=== PATIENT | female | born 1970 | race Caucasian/White ===

== ENCOUNTER 2020-08-14 00:58 | Outpatient (CLI) | payer BC, SELFPAY ==
--- NOTE | 2020-08-14 08:45 | DI.MAMMO_ITS ---
EXAM: MG MAMMO SCREENING CLINICAL HISTORY: screening, Z12.39 TECHNIQUE: Bilateral full field digital CC and MLO mammographic images were obtained with 3D tomosyn thesis and utilizing computer aided detection (CAD). COMPARISON: There are no priors for comparison at this time. Should they become available, an adden dum will be issued. FINDINGS: Masses/Architectural Distortion: None seen. Left breast biopsy clips are noted. Microcalcifications: No suspicious pleomorphic-type are seen. Skin Thickening/Nipple Retraction: None. IMPRESSION: 1. No significant interval change with no specific features of malignancy noted. 2. Unless there is more urgent need, screening mammography is recommended, as per [place] [employer] guidelines. BI-RADS Category 1 - Negative Breast Density - Category C - Heterogeneously dense The mammogram demonstrates the patient's breast tissue is dense. Dense breast tissue is very common a nd is not abnormal but dense breast tissue can make it harder to find cancer on a mammogram. Also, de nse breast tissue may increase their breast cancer risk. This information about the result of the [facility] mogram report was provided to the patient to raise their awareness. Use this report when you speak wi th the patient about their risks for breast cancer, which includes their family history. At that time , you may recommend for more screening tests (Ultrasound or MRI) as they might be useful based on the ir risk. A negative radiographic report should not delay biopsy if a dominant or clinically suspicious mass is present. Up to ten percent of cancers are not identified on mammography. A negative report may reinforce clinical impression. Adenosis and dense breasts may obscure an underlying neoplasm. False positive reports average 6 to 10%. Patient will receive a letter notifying them of these results.
== END 2020-08-14 01:18 ==
PROVIDERS: PCP Nurse Practitioner Family; Visit Provider Nurse Practitioner Family
DX: Z12.31 Encounter for screening mammogram for malignant neoplasm of breast (principal)
CPT/HCPCS: 77063; 77067

== ENCOUNTER 2020-08-16 02:01 | Outpatient (CLI) | payer BC, SELFPAY ==
[2020-08-16 07:37] LABS: HCT 42.6 % (36.0-46.0); HGB 14.1 g/dL (11.2-15.7); MCH 28.1 pg (27.0-33.0); MCHC 33.1 % (32.0-36.0); MPV 9.7 fL (8.0-11.0); Platelet Count 285 10^3/uL (130-400); RBC 5.01 10^6/uL (3.93-5.22); RDW 13.2 % (11.7-14.6); RDW-SD 40.6 fL; WBC 5.36 10^3/uL (4.4-10.8)
[2020-08-16 08:42] LABS: Total Iron Binding Capacity 377 ug/dL (250-450)
[2020-08-16 08:56] LABS: Anion Gap 8.2 mmol/L (3-11); BUN 19 mg/dL (7-18); CO2 23.8 mmol/L (21.0-32.0); CREATININE 0.91 mg/dL (0.55-1.02); Calcium 8.9 mg/dL (8.5-10.1); Calculated LDL 197 mg/dL (<100); Chloride 108 mmol/L (98-107); Cholesterol 276 mg/dL (<200); Ferritin 33 ng/mL (8-252); Glucose 102 mg/dL (74-106); HDL Cholesterol 51 mg/dL (40-60); Potassium 4.5 mmol/L (3.5-5.1); Sodium 140 mmol/L (136-145); Triglyceride 143 mg/dL (<150)
[2020-08-16 09:32] LABS: Hemoglobin A1C 5.3 % (<5.7)
== END 2020-08-16 02:21 ==
PROVIDERS: PCP Nurse Practitioner Family; Visit Provider Nurse Practitioner Family
DX: E78.5 Hyperlipidemia, unspecified (principal); D50.9 Iron deficiency anemia, unspecified
CPT/HCPCS: 36415; 80048; 80061; 85027; 82728; 83036; 83550

== ENCOUNTER 2020-10-22 09:30 | Outpatient (CLI) | payer BC, SELFPAY ==
[2020-10-22 20:33] LABS: COVID-19 RT-PCR UVMMC Result Negative (Negative)
== END 2020-10-22 09:50 ==
PROVIDERS: PCP Nurse Practitioner Family; Visit Provider Nurse Practitioner Family
DX: Z20.828 Contact with and (suspected) exposure to other viral communicable diseases (principal)
CPT/HCPCS: U0003

== ENCOUNTER 2020-12-30 14:16 | Outpatient (REF) | payer BC, SELFPAY ==
[2021-01-01 12:58] LABS: COVID-19 RT-PCR UVMMC Result Negative (Negative)
== END 2020-12-30 14:17 | disposition home or self-care (01) ==
LOC: NCHCN 14:16
PROVIDERS: PCP Nurse Practitioner Family; Visit Provider Nurse Practitioner Family
DX: Z20.822 Contact with and (suspected) exposure to COVID-19 (principal)
CPT/HCPCS: U0003

== ENCOUNTER 2021-09-22 02:25 | Outpatient (CLI) | payer BC, SELFPAY ==
[2021-09-22 08:23] LABS: ALT 28 U/L (14-59); AST 14 U/L (15-37); Albumin 3.7 g/dL (3.4-5.0); Alkaline Phosphatase 95 U/L (46-116); BUN 21 mg/dL (7-18); Bilirubin, Total 0.3 mg/dL (0.2-1.0); CREATININE 0.9 mg/dL (0.55-1.02); Calcium 8.8 mg/dL (8.5-10.1); Calculated LDL 158 mg/dL (<100); Chloride 108 mmol/L (98-107); Cholesterol 233 mg/dL (<200); Glucose 119 mg/dL (74-106); HDL Cholesterol 51 mg/dL (40-60); Potassium 4.3 mmol/L (3.5-5.1); Sodium 143 mmol/L (136-145); Total Protein 7.1 g/dL (6.4-8.2); Triglyceride 123 mg/dL (<150)
== END 2021-09-22 02:26 | disposition home or self-care (01) ==
LOC: LBO 02:26
PROVIDERS: PCP Nurse Practitioner Family; Visit Provider Nurse Practitioner Family
DX: E78.5 Hyperlipidemia, unspecified (principal)
CPT/HCPCS: 36415; 80053; 80061

== ENCOUNTER 2021-11-12 02:05 | Outpatient (CLI) | payer BC, SELFPAY ==
[2021-11-12 16:27] LABS: Abs Immature Grans 0.05 10^3/uL (0.0-0.06); Absolute Basophil Count 0.03 10^3/uL (0.0-0.2); Absolute Eosinophil Count 0.17 10^3/uL (0.0-0.7); Absolute Lymphocyte Count 1.93 10^3/uL (1.2-3.4); Absolute Monocyte Count 0.55 10^3/uL (0.1-0.8); Absolute Neutrophil Count 5.08 10^3/uL (1.2-6.7); Basophils % 0.4; Eosinophils % 2.2; HCT 39.5 % (36.0-46.0); HGB 12.3 g/dL (11.2-15.7); Immature Grans % 0.6; Lymphocytes % 24.7; MCH 25.3 pg (27.0-33.0); MCHC 31.1 % (32.0-36.0); MCV 81.1 fL (80-95); MPV 9.7 fL (8.0-11.0); Neutrophils % 65.1; Nucleated RBC 0 %; Platelet Count 300 10^3/uL (130-400); RBC 4.87 10^6/uL (3.93-5.22); RDW 14.6 % (11.7-14.6); RDW-SD 42.2 fL; WBC 7.81 10^3/uL (4.4-10.8)
[2021-11-12 16:29] LABS: ESR 29 mm/hr (0-20)
[2021-11-12 18:45] LABS: ALT 22 U/L (14-59); AST 11 U/L (15-37); Albumin 3.7 g/dL (3.4-5.0); Alkaline Phosphatase 95 U/L (46-116); Anion Gap 10.2 mmol/L (3-11); BUN 18 mg/dL (7-18); Bilirubin, Total 0.2 mg/dL (0.2-1.0); CO2 21.8 mmol/L (21.0-32.0); CREATININE 0.7 mg/dL (0.55-1.02); Calcium 8.7 mg/dL (8.5-10.1); Chloride 104 mmol/L (98-107); Glucose 100 mg/dL (74-106); Potassium 4.1 mmol/L (3.5-5.1); Sodium 136 mmol/L (136-145); TSH (W/Ref FT4) 4.27 uIU/mL (0.36-3.74); Total Protein 7.3 g/dL (6.4-8.2)
[2021-11-12 19:03] LABS: FREE T4 0.94 ng/dL (0.76-1.46)
[2021-11-13 17:20] LABS: CRP, High Sensitivity 7.87 mg/L (See Note)
[2021-11-14 13:54] LABS: Lyme Ab w Rflx to Lyme Confirm Negative (Negative)
[2021-11-15 00:35] LABS: Anaplasma phagocytophilum Negative (Negative); B. miyamotoi PCR Negative (Negative); Babesia divergens/MO-1 Negative (Negative); Babesia duncani Negative (Negative); Babesia microti Negative (Negative); Ehrlichia chaffeensis Negative (Negative); Ehrlichia ewingii/canis Negative (Negative); Ehrlichia muris eauclairensis Negative (Negative)
== END 2021-11-12 02:06 | disposition home or self-care (01) ==
LOC: LBO 02:05
PROVIDERS: PCP Nurse Practitioner Family; Visit Provider Nurse Practitioner Family
DX: M25.59 Pain in other specified joint (principal)
CPT/HCPCS: 36415; 80053; 85652; 86141; 87798; 83001; 84439; 84443; 85025; 86618

== ENCOUNTER 2021-11-27 03:01 | Outpatient (CLI) | payer BC, SELFPAY ==
[2021-11-27 21:00] LABS: Rheumatoid Factor <8.6 IU/mL (<12.0)
[2021-11-28 14:25] LABS: ANA Interpretation Negative (Negative)
== END 2021-11-27 03:02 | disposition home or self-care (01) ==
LOC: LBO 03:01
PROVIDERS: PCP Nurse Practitioner Family; Visit Provider Nurse Practitioner Family
DX: M25.59 Pain in other specified joint (principal)
CPT/HCPCS: 36415; 86038; 86431

== ENCOUNTER 2022-01-15 02:05 | Outpatient (CLI) | payer BC, SELFPAY ==
--- NOTE | 2022-01-15 08:55 | DI.MAMMO_ITS ---
Exam(s) MAMMO SCREENING EXAM: MAMMO SCREENING CLINICAL HISTORY: screening,Z12.39 TECHNIQUE: Bilateral full field digital CC and MLO mammographic images were obtained with 3D tomosyn thesis and utilizing computer aided detection (CAD). COMPARISON: Available for comparison. FINDINGS: Masses/Architectural Distortion: There is a new ovoid density in the outer central right breast. Thi s area should be further evaluated. There is again seen a biopsy clip in the upper outer quadrant of the left breast. Microcalcifications: No suspicious pleomorphic-type are seen. Skin Thickening/Nipple Retraction: None. IMPRESSION: 1. New ovoid nodular density in the outer central right breast. 2. Follow-up with spot compression view and right breast ultrasound is recommended. BI-RADS Category 0 - Assessment Incomplete: Need additional imaging evaluation Breast Density - Category C - Heterogeneously dense Breast density category C or D implies that the patient has dense breast tissue. Dense breast tissue is very common and is not abnormal but dense breast tissue can make it harder to find cancer on a ma mmogram. Also, dense breast tissue may increase their breast cancer risk. This information about the result of the mammogram report was provided to the patient to raise their awareness. Use this report when you speak with the patient about their risks for breast cancer, which includes their family hist ory. At that time, you may recommend for more screening tests (Ultrasound or MRI) as they might be us eful based on their risk. A negative radiographic report should not delay biopsy if a dominant or clinically suspicious mass is present. Up to ten percent of cancers are not identified on mammography. A negative report may reinforce clinical impression. Adenosis and dense breasts may obscure an underlying neoplasm. False positive reports average 6 to 10%. Patient will receive a letter notifying them of these results.
== END 2022-01-15 02:25 ==
PROVIDERS: PCP Nurse Practitioner Family; Visit Provider Nurse Practitioner Family
DX: Z12.31 Encounter for screening mammogram for malignant neoplasm of breast (principal); R92.8 Other abnormal and inconclusive findings on diagnostic imaging of breast
CPT/HCPCS: 77063; 77067

== ENCOUNTER 2022-01-29 01:01 | Outpatient (CLI) | payer BC, SELFPAY ==
--- NOTE | 2022-01-29 09:00 | DI.MAMMO_ITS ---
Exam(s) MG MAMMO SCREEN CALL BACK UNI US BREAST RT LIMITED EXAM: MG MAMMO SCREEN CALL BACK UNI and U/S breast RT limited CLINICAL HISTORY: F/U ABNL MAMMO, NEW OVOID DENSITY OUTER CENTRAL RT BREAST. TECHNIQUE: Craniocaudal and mediolateral oblique Full Field Digital Mammography views of the right b reast with Computer Aided Diagnosis followed by Tomosynthesis and right breast ultrasound. COMPARISON: Comparison is made with prior examinations. FINDINGS: Mammography/Tomosynthesis: Masses/Architectural Distortion: There is again seen a well-circumscribed nodule in the outer right b reast approximately 6 cm from the nipple. Microcalcifictions: No suspicious pleomorphic-type are seen. Skin Thickening/Nipple Retraction: None. Limited right breast US: Echotexture: Normal appearance of the glandular tissue. Shadowing: No suspicious foci. Cyst: A cluster of simple cysts is seen at the 8 o'clock position of the right breast 5 cm from the n ipple. This would appear to correspond to the mammographic abnormality. Solid lesions: None seen. Ductal dilation: None. IMPRESSION: 1. No evidence of malignancy is noted. 2. Unless there is more urgent need, follow-up screening mammography is recommended, as per [place] [employer] guidelines. 3. The findings were discussed with the patient on the date of the examination. BI-RADS Category 2 - Benign Findings Breast Density - Category C - Heterogeneously dense Breast density Category C or D implies that the patient has dense breast tissue. Dense breast tissue can make it harder to find cancer on a mammogram. Dense breast tissue is also associated with an incr eased risk of breast cancer. This information about the result of the mammogram report was provided to the patient to raise their awareness. Use this report when you speak with the patient about their risks for breast cancer, which includes their family history. At that time, you may recommend additional screening tests (Ultrasoun d or MRI) as these tests may add significant information. A negative radiographic report should not delay biopsy if a dominant or clinically suspicious mass is present. Up to ten percent of cancers are not identified on mammography. A negative report may reinforce clinical impression. Adenosis and dense breasts may obscure an underlying neoplasm. False positive reports average 6 to 10%. Patient will receive a letter notifying them of these results.
== END 2022-01-29 01:21 ==
PROVIDERS: PCP Nurse Practitioner Family; Visit Provider Nurse Practitioner Family
DX: Z12.31 Encounter for screening mammogram for malignant neoplasm of breast (principal); R92.8 Other abnormal and inconclusive findings on diagnostic imaging of breast; N60.11 Diffuse cystic mastopathy of right breast
CPT/HCPCS: 76642; 77063; 77067

== ENCOUNTER → 2022-03-09 02:26 | Outpatient (CLI) | payer BC, SELFPAY ==
--- NOTE | 2022-03-09 | DI.RAD_ITS ---
Exam(s) XR KNEE RT 3V AP,LAT,DESTINI EXAM: XR KNEE RT 3V AP,LAT,DESTINI CLINICAL HISTORY: CHRONIC RT KNEE PAIN, M25.561, G89.29. TECHNIQUE: 2D digital imaging was performed of the right knee. Three views obtained. AP, PA tunnel and lateral views were obtained. COMPARISON: No exams were available for comparison FINDINGS: BONES: No acute fracture is present. No bony destructive lesion is seen. JOINTS: The knee is normally aligned. No joint effusion is seen. There is narrowing of the patellofem oral joint. Periarticular spurring is seen in the lateral femoral tibial and patellofemoral joints. SOFT TISSUE: Normal. IMPRESSION: Moderate degenerative changes of the right knee. DATA REPOSITORY: RADIATION DOSE DELIVERED:
--- NOTE | 2022-03-09 | DI.RAD_ITS ---
Exam(s) XR KNEE LT 3V AP,LAT,DESTINI EXAM: XR KNEE LT 3V AP,LAT,DESTINI CLINICAL HISTORY: CHRONIC PAIN LT KNEE, M25.562, G89.29. TECHNIQUE: 2D digital imaging was performed of the left knee. Three images were obtained. AP, PA t unnel and lateral views were obtained. COMPARISON: No previous for comparison. FINDINGS: BONES: No acute fracture is present. No bony destructive lesion is seen. JOINTS: The knee is normally aligned. No joint effusion is seen. There is mild narrowing of the adame lofemoral joint. There is periarticular spurring predominantly in the lateral femoral tibial and pat ellofemoral joints. SOFT TISSUE: Normal. IMPRESSION: [id number] degenerative changes of the left knee. DATA REPOSITORY: RADIATION DOSE DELIVERED:
--- NOTE | 2022-03-09 | DI.RAD_ITS ---
Exam(s) XR ARTHRITIS SERIES EXAM: XR ARTHRITIS SERIES CLINICAL HISTORY: REAGAN HAND PAIN, EVAL FOR ARTHRITIS. TECHNIQUE: 2D digital imaging was performed. Two views were obtained. COMPARISON: No exams were available for comparison FINDINGS: BONES: No acute fracture is present. No bony destructive lesion is seen. JOINTS: No dislocation present. SOFT TISSUE: Normal. IMPRESSION: Unremarkable radiographs of bilat hands DATA REPOSITORY: RADIATION DOSE DELIVERED:
== END ==
PROVIDERS: PCP Nurse Practitioner Family; Visit Provider Internal Medicine Rheumatology
DX: M25.562 Pain in left knee (principal); M25.561 Pain in right knee; M17.0 Bilateral primary osteoarthritis of knee; G89.29 Other chronic pain; M79.641 Pain in right hand; M79.642 Pain in left hand
CPT/HCPCS: 73562; 73120

== ENCOUNTER 2022-03-27 15:39 | Outpatient (REF) | payer BC, SELFPAY ==
[2022-03-29 15:42] LABS: COVID-19 RT-PCR UVMMC Result Negative (Negative)
== END 2022-03-27 15:40 | disposition home or self-care (01) ==
LOC: LBN 15:39
PROVIDERS: PCP Nurse Practitioner Family; Visit Provider Family Medicine
DX: R05.8 Other specified cough (principal); Z20.822 Contact with and (suspected) exposure to COVID-19
CPT/HCPCS: U0003

== ENCOUNTER 2022-04-10 01:27 | Outpatient (CLI) | payer BC, SELFPAY ==
[2022-04-13 09:40] LABS: IgA 70 mg/dL (85-499); IgG 895 mg/dL (610-1,616); IgM 66 mg/dL (35-242)
== END 2022-04-10 01:28 | disposition home or self-care (01) ==
LOC: LBO 01:27
PROVIDERS: PCP Nurse Practitioner Family; Visit Provider Internal Medicine Rheumatology
DX: D80.2 Selective deficiency of immunoglobulin A [IgA] (principal)
CPT/HCPCS: 36415; 82784

== ENCOUNTER 2022-05-19 03:52 | Outpatient (CLI) | payer BC, SELFPAY ==
[2022-05-19 12:25] LABS: ALT 30 U/L (14-59); AST 12 U/L (15-37); Albumin 3.3 g/dL (3.4-5.0); Alkaline Phosphatase 82 U/L (46-116); Anion Gap 10.1 mmol/L (3-11); BUN 15 mg/dL (7-18); Bilirubin, Total 0.3 mg/dL (0.2-1.0); CO2 20.9 mmol/L (21.0-32.0); CREATININE 0.8 mg/dL (0.55-1.02); Calcium 8.4 mg/dL (8.5-10.1); Chloride 107 mmol/L (98-107); Glucose 148 mg/dL (74-106); Potassium 3.7 mmol/L (3.5-5.1); Sodium 138 mmol/L (136-145); Total Protein 7.1 g/dL (6.4-8.2)
== END 2022-05-19 03:53 | disposition home or self-care (01) ==
LOC: LBO 03:52
PROVIDERS: PCP Nurse Practitioner Family; Visit Provider Internal Medicine Rheumatology
DX: Z79.899 Other long term (current) drug therapy (principal)
CPT/HCPCS: 36415; 80053

== ENCOUNTER → 2022-08-28 01:04 | Outpatient (CLI) | payer BC, SELFPAY ==
[2022-08-28 09:27] LABS: Abs Immature Grans 0.04 10^3/uL (0.0-0.06); Absolute Basophil Count 0.03 10^3/uL (0.0-0.2); Absolute Eosinophil Count 0.22 10^3/uL (0.0-0.7); Absolute Lymphocyte Count 1.25 10^3/uL (1.2-3.4); Absolute Monocyte Count 0.43 10^3/uL (0.1-0.8); Absolute Neutrophil Count 3.45 10^3/uL (1.2-6.7); Basophils % 0.6; Eosinophils % 4.1; HCT 38.5 % (36.0-46.0); Immature Grans % 0.7; Lymphocytes % 23.1; MCH 24.8 pg (27.0-33.0); MCHC 31.2 % (32.0-36.0); MCV 80 fL (80-95); MPV 9.5 fL (8.0-11.0); Monocytes % 7.9; Neutrophils % 63.6; Platelet Count 293 10^3/uL (130-400); RBC 4.83 10^6/uL (3.93-5.22); RDW 13.4 % (11.7-14.6); RDW-SD 38.5 fL; WBC 5.42 10^3/uL (4.4-10.8)
[2022-08-28 09:55] LABS: ALT 23 U/L (14-59); AST 15 U/L (15-37); Albumin 3.7 g/dL (3.4-5.0); Alkaline Phosphatase 107 U/L (46-116); Anion Gap 9.7 mmol/L (3-11); BUN 18 mg/dL (7-18); Bilirubin, Total 0.3 mg/dL (0.2-1.0); CO2 23.3 mmol/L (21.0-32.0); Calcium 9.1 mg/dL (8.5-10.1); Chloride 108 mmol/L (98-107); Estimated GFR 68.21 (mL/min/1.73m2); Glucose 117 mg/dL (74-106); Sodium 141 mmol/L (136-145); Total Protein 8.1 g/dL (6.4-8.2)
[2022-08-28] MEDS: Barium Sulfate 2% W/V-Berry Smoothie 450 ML BTL 900 ML PO (11:13)
[2022-08-28] MEDS: Omnipaque 350 MG/ML 500 ML BTL-Imaging package 100 ML IJ (11:14)
--- NOTE | 2022-08-28 11:23 | DI.CT_ITS ---
Exam(s) CT CHEST/ABD/PEL W EXAM: CT CHEST/ABD/PEL W CLINICAL HISTORY: MONOCLONAL GAMMOPATHY,D47.2,SUSPECT POEM,STAGING,?ADENOPATHY,SCLEROTIC BONE. TECHNIQUE: Imaging Protocol: Axial computed tomography images with coronal and sagittal reformatted images were created and reviewed CONTRAST MATERIAL: Intravenous: Omnipaque 350 Contrast volume:100 ml Oral: Yes COMPARISON: No exams were available for comparison FINDINGS: CHEST: LUNGS: There are no infiltrates nor pleural effusions. There are no ominous pulmonary nodules.. MEDIASTINUM: There is no hilar nor mediastinal adenopathy. Visualized thyroid unremarkable.No supracl avicular nor axillary adenopathy. CARDIAC: Heart size is normal. There is no pericardial effusion.Caliber of the thoracic aorta is wit hin normal limits. OSSEOUS: No significant osseous lesions.No fractures evident.. ABDOMEN: There is no ascites. LIVER: Liver is hypodense implying steatosis. There are no discrete focal hepatic lesions identified . GALLBLADDER/BILIARY: The gallbladder surgically absent. CBD is not dilated. PANCREAS: No evidence of pancreatic mass nor dilatation of the pancreatic duct. SPLEEN: Spleen size is upper normal. No intrasplenic lesions. Splenic and portal veins are patent. ADRENALS: There are no significant adrenal masses. KIDNEYS: No calculi nor hydronephrosis. No solid renal masses. No cysts evident. ABDOMINAL AORTA: Abdominal aorta is not enlarged. LYMPH NODES: There is no retroperitoneal nor paraaortic adenopathy. ABDOMINAL WALL: No evidence of significant anterior abdominal wall nor inguinal hernia. GI: There is no evidence of bowel obstruction.No abnormal mesenteric masses evident. No mesenteric a denopathy. PELVIS: LYMPH NODES: There is no intrapelvic nor inguinal adenopathy. GI: No evidence of appendicitis.No significant sigmoid diverticular disease. URINARY BLADDER: No calculi nor masses evident REPRODUCTIVE: Uterus is surgically absent. There are no abnormal adnexal masses. Few small cysts ar e noted in the ovaries. There are no extraovarian adnexal masses. OSSEOUS: No significant osseous lesions. No fractures. There is mild degenerative anterolisthesis of L4 upon L5 due to facet arthropathy. Th ere are no pars defects. IMPRESSION: 1. No significant intrathoracic findings. 2. Gallbladder surgically absent. The biliary tree is not dilated. 3. Hepatic steatosis noted but no discrete focal hepatic lesions. No splenomegaly. 4. No abnormal mesenteric masses, lymphadenopathy, or ascites. 5. The uterus is surgically absent. No abnormal adnexal findings. 6. No fractures nor ominous osseous lesions evident. RADIATION DOSE DELIVERED: 2,884.62mGy.cm Total DLP DATA REPOSITORY: All CT scans at this facility are submitted to the National Radiology Data Registry (NRDR) Dose Index Registry (DIR) with the [employer] (ACR). RADIATION OPTIMIZATION: All CT scans at this facility use at least one of these dose optimization te chniques: automated exposure control; mA and/or kV adjustment per patient size (includes targeted exa ms where dose is matched to clinical indication); or iterative reconstruction.
[2022-08-31 10:18] LABS: IgA 78 mg/dL (85-499); IgG 1014 mg/dL (610-1616); IgM 89 mg/dL (35-242); Kappa Free Light Chain 1.25 mg/dL (0.33-1.94); Lambda Free Light Chain 1.23 mg/dL (0.57-2.63)
[2022-08-31 13:45] LABS: Albumin 56.1 % (55.8-66.1); Albumin g/dL 3.9 g/dL (3.6-5.2); Comment (See Note); Monoclonal Spike 6.5 % (None Seen); Monoclonal Spike g/dL 0.5 g/dL (None Seen)
[2022-08-31 14:54] LABS: Immunotyping, Serum (See Note)
== END ==
PROVIDERS: PCP Nurse Practitioner Family; Visit Provider Internal Medicine Hematology & Oncology
DX: K76.0 Fatty (change of) liver, not elsewhere classified (principal); D47.2 Monoclonal gammopathy
CPT/HCPCS: 74177; 80053; 82784; 71260; 83883; 84165; 85025; 86320

== ENCOUNTER 2023-01-18 02:43 | Outpatient (CLI) | payer BC, SELFPAY ==
[2023-01-18] MEDS: Albuterol HFA 18 GM 200 PUFF INH IH (09:27)
[2023-01-18] MEDS: Inhaler, Assist Device 1 EACH MC (09:28)
--- NOTE | 2023-01-19 10:09 | W.PFT ---
Date of service: 01/18/23 Time of Service: 08:02 Pulmonary Function Test Result Indications: Asthma Interpretation Spirometry: There is no airflow limitation. There is no bronchodilator response. Lung Volumes: There may be some air trapping. Diffusion Capacity: Normal diffusion. Airway Pressure: Normal airways resistance. Impression Normal pulmonary function testing with some possible air trapping. Clinical Correlation therefore is recommended.
== END 2023-01-18 02:44 | disposition home or self-care (01) ==
LOC: RT 02:43
PROVIDERS: PCP Nurse Practitioner Family; Visit Provider Nurse Practitioner Family
DX: J45.909 Unspecified asthma, uncomplicated (principal)
CPT/HCPCS: 94060; 94726; 94729

== ENCOUNTER 2023-01-25 01:57 | Outpatient (CLI) | payer BC, SELFPAY ==
--- NOTE | 2023-01-25 08:30 | DI.MAMMO_ITS ---
Exam(s) MAMMO SCREENING EXAM: MAMMO SCREENING CLINICAL HISTORY: screening.z12.39. TECHNIQUE: Bilateral full field digital CC and MLO mammographic images were obtained with 3D tomosyn thesis and utilizing computer aided detection (CAD). COMPARISON: Prior mammograms were reviewed. Prior right breast ultrasound performed in January 2022 was reviewed. FINDINGS: No new findings in the immediate vicinity of the 2 separate biopsy marker clips in the left breast. No new left breast findings. In the right breast on the MLO view there is a asymmetric density-possible nodule measuring 5 x 3 mil limeters located approximately 5 cm in from the nipple, slightly lateral of center, appearing somewha t different in location and the previously present nodular density on the mammogram 1 year ago. Furt her imaging recommended. There are no malignant-appearing microcalcification groups is region or elsewhere in either breast. There is no significant architectural distortion nor skin thickening-retraction. IMPRESSION: 1. Stable benign-appearing left breast findings. 2. Possible new nodule in the right breast measuring approximately 5 x 3 mm seen on the MLO view. Sp ot compression view and ultrasound recommended. This appears to be in different location than the catia proctor which was further studied last year. BI-RADS Category 0 - Assessment Incomplete: Need additional imaging evaluation Breast Density - Category B - Scattered areas of fibroglandular density Breast density Category C or D implies that the patient has dense breast tissue. Dense breast tissue can make it harder to find cancer on a mammogram. Dense breast tissue is also associated with an incr eased risk of breast cancer. This information about the result of the mammogram report was provided to the patient to raise their awareness. Use this report when you speak with the patient about their risks for breast cancer, which includes their family history. At that time, you may recommend additional screening tests (Ultrasoun d or MRI) as these tests may add significant information. A negative radiographic report should not delay biopsy if a dominant or clinically suspicious mass is present. Up to ten percent of cancers are not identified on mammography. A negative report may reinforce clinical impression. Adenosis and dense breasts may obscure an underlying neoplasm. False positive reports average 6 to 10%. Patient will receive a letter notifying them of these results.
== END 2023-01-25 02:17 ==
LOC: DI 01:57
PROVIDERS: PCP Nurse Practitioner Family; Visit Provider Nurse Practitioner Family
DX: Z12.31 Encounter for screening mammogram for malignant neoplasm of breast (principal); R92.8 Other abnormal and inconclusive findings on diagnostic imaging of breast
CPT/HCPCS: 77063; 77067

== ENCOUNTER 2023-01-27 03:26 | Outpatient (CLI) | payer BC, SELFPAY ==
[2023-01-27 07:29] LABS: Abs Immature Grans 0.04 10^3/uL (0.0-0.06); Absolute Basophil Count 0.03 10^3/uL (0.0-0.2); Absolute Eosinophil Count 0.11 10^3/uL (0.0-0.7); Absolute Neutrophil Count 3.47 10^3/uL (1.2-6.7); Basophils % 0.6; Eosinophils % 2.1; HCT 39.3 % (36.0-46.0); HGB 12.1 g/dL (11.2-15.7); Immature Grans % 0.7; Lymphocytes % 24.3; MCH 24.2 pg (27.0-33.0); MCHC 30.8 % (32.0-36.0); MCV 79 fL (80-95); MPV 9.3 fL (8.0-11.0); Monocytes % 7.5; Neutrophils % 64.8; Platelet Count 251 10^3/uL (130-400); RBC 4.99 10^6/uL (3.93-5.22); RDW-SD 42.6 fL; WBC 5.35 10^3/uL (4.4-10.8)
[2023-01-27 07:51] LABS: ALT 30 U/L (14-59); AST 13 U/L (15-37); Albumin 3.5 g/dL (3.4-5.0); Alkaline Phosphatase 101 U/L (46-116); Anion Gap 12.1 mmol/L (3-11); BUN 15 mg/dL (7-18); Bilirubin, Total 0.3 mg/dL (0.2-1.0); CO2 22.9 mmol/L (21.0-32.0); Calcium 8.9 mg/dL (8.5-10.1); Calculated LDL 142 mg/dL (<100); Chloride 108 mmol/L (98-107); Cholesterol 238 mg/dL (<200); Estimated GFR 67.78 (mL/min/1.73m2); Glucose 120 mg/dL (74-106); HDL Cholesterol 65 mg/dL (40-60); Potassium 4.2 mmol/L (3.5-5.1); Sodium 143 mmol/L (136-145); TSH (W/Ref FT4) 3.98 uIU/mL (0.36-3.74); Total Protein 7.6 g/dL (6.4-8.2); Triglyceride 159 mg/dL (<150)
[2023-01-27 07:55] LABS: Hemoglobin A1C 6.3 % (<5.7)
[2023-01-27 08:24] LABS: FREE T4 1.07 ng/dL (0.76-1.46)
[2023-01-28 09:44] LABS: IgA 79 mg/dL (85-499); IgG 945 mg/dL (610-1616); IgM 90 mg/dL (35-242); Kappa Free Light Chain 1.15 mg/dL (0.33-1.94); Lambda Free Light Chain 0.88 mg/dL (0.57-2.63)
[2023-01-28 10:51] LABS: Ferritin 8 ng/mL (8-252)
[2023-01-28 12:46] LABS: Albumin 57.7 % (55.8-66.1); Albumin g/dL 4.2 g/dL (3.6-5.2); Comment (See Note); Monoclonal Spike 6.6 % (None Seen); Monoclonal Spike g/dL 0.5 g/dL (None Seen); Total Protein 7.2 g/dL (6.3-8.2)
[2023-01-28 13:14] LABS: Lab Add On Test DONE
== END 2023-01-27 03:27 | disposition home or self-care (01) ==
PROVIDERS: PCP Nurse Practitioner Family; Visit Provider Internal Medicine Hematology & Oncology
DX: D47.2 Monoclonal gammopathy (principal)
CPT/HCPCS: 36415; 80053; 80061; 82784; 82728; 83036; 83883; 84165; 84439; 84443; 85025

== ENCOUNTER 2023-02-01 00:17 | Outpatient (CLI) | payer BC, SELFPAY ==
--- NOTE | 2023-02-01 07:15 | DI.NM_ITS ---
APPROVED REPORT Exam: Pharmacologic Patient Location: Out-Patient Room/Bed: Stress Nurse: Clarisse Soriano RN Ordering Provider:EBENEZER DLIL, Contact Number: [phone] BMI: 43.59 Baseline Rhythm: Sinus Rhythm Indications: Chest heaviness, GOLDBERG, family H/O heart disease Medical History Medical History: HTN, HLD, GERD, obesity, prediabetes, asthma, ansiety disorder, ANGIE, vit D deficienc y Cardiac Medications: Losartan, Ezetimibe, albuterol, montelukast, hydroxychloroquine Allergies: Statins, latex, erythromycin base, HMG-COA reductase inhibitors Cardiac Risk Factors: HTN, HLD, diabetes, asthma, obesity Previous Cardiac Procedures: None Pretest Chest Pain Characteristics: None Exercise History: Indeterminate Physical Disabilities: None Lung Sounds: Clear to auscultation, diminshed throughout Heart Sounds: Regular Stress Test Details Test: Pharmacologic stress testing performed using 0.4 mg of regadenoson per 5 mL given IV over 10 s econds. Reason for pharmacologic stress test: other (equipment failure). Nuclear Acquisition: Rest Tc-99m/Stress Tc-99m 1 day Rest Isotope: Tc-99m Sestamibi. Dose: 12.0 Date: 02/01/2023 Injection Time: 0930 Stress Isotope: Tc-99m Sestamibi. Dose: 36.0 Date: 02/01/2023 Injection Time: 1130 HR Resting HR Supine: 68 bpm Max Heart Rate (APMHR): 168.990768 bpm Target HR (85% APMHR): 142.612701 bpm Max HR Achieved: 86 bpm % of APMHR: 51.19 Recovery HR: 77 bpm BP Resting BP Supine: 132/68 mmHg Max BP: 142/72 mmHg Recovery BP: 128/64 mmHg ECG Resting ECG: Sinus Rhythm Ectopy: None Stress ECG: Sinus Rhythm ST Change: No significant ST segment changes noted Arrhythmia: None Recovery ECG: Sinus Rhythm Recovery ST Change: No significant ST segment changes noted Recovery Arrhythmia: None Clinical Stress Symptoms: Mild chest heaviness. Angina Score: Non-Limiting Rate Pressure Product: 39700 Stress ECG Conclusion 1. Resting EKG showed left ventricular hypertrophy 2. Pateint underwent testing using paharmacologic stress with regadenoson 3. Peak heart rate was 51% of predicted for age 4. The electrocardiographic portion of the test was nondiagnostic 5. See MPI report MPI Conclusion Myocardial perfusion is normal without ischemia or evidence of prior infarction EF is 65%, wall motion is normal Radiologist Interpretation Radiologist Interpretation by: Russell Ortiz MD Interpretation Date/Time: 02/01/2023 17:10:13
[2023-02-01] MEDS: Regadenoson 0.4 MG/5 ML SYR IVP (12:01)
== END 2023-02-01 00:37 ==
LOC: DI 00:17
PROVIDERS: PCP Nurse Practitioner Family; Visit Provider Nurse Practitioner Family
DX: R07.89 Other chest pain (principal); Z82.49 Family history of ischemic heart disease and other diseases of the circulatory system
CPT/HCPCS: 78452; 93017; J2785

== ENCOUNTER 2023-02-15 00:52 | Outpatient (CLI) | payer BC, SELFPAY ==
--- NOTE | 2023-02-15 | DI.MAMMO_ITS ---
Exam(s) MG MAMMO SCREEN CALL BACK UNI US BREAST RT LIMITED EXAM: MG MAMMO SCREEN CALL BACK UNI and U/S breast RT limited CLINICAL HISTORY: ? NEW NODULE RT BREAST, R92.8 ABNL MAMMO. TECHNIQUE: Craniocaudal and mediolateral oblique Full Field Digital Mammography views of the right b reast with Computer Aided Diagnosis followed by Tomosynthesis and right breast ultrasound. COMPARISON: Comparison is made with prior examinations. FINDINGS: Mammography/Tomosynthesis: Masses/Architectural Distortion: There is again seen a well-circumscribed 4-5 mm nodule in the inferi or right breast on the MLO view. This nodule has been present on prior examinations and is stable in size. No suspicious nodules are seen no suspicious areas of architectural distortion are present. Microcalcifictions: No suspicious pleomorphic-type are seen. Skin Thickening/Nipple Retraction: None. Limited right breast US: Echotexture: Normal appearance of the glandular tissue. Shadowing: No suspicious foci. Cyst: There is a 0.4 x 0.3 x 0.3 cm simple cyst at the 4 o'clock position of the right breast 4 cm fr om the nipple. This would appear to correspond to the mammographic abnormality. Solid lesions: None seen. Ductal dilation: None. IMPRESSION: 1. No evidence of malignancy is noted. 2. Unless there is more urgent need, follow-up screening mammography is recommended, as per [place] [employer] guidelines. 3. The findings were discussed with the patient on the date of the examination. BI-RADS Category 2 - Benign Findings Breast Density - Category B - Scattered areas of fibroglandular density Breast density Category C or D implies that the patient has dense breast tissue. Dense breast tissue can make it harder to find cancer on a mammogram. Dense breast tissue is also associated with an incr eased risk of breast cancer. This information about the result of the mammogram report was provided to the patient to raise their awareness. Use this report when you speak with the patient about their risks for breast cancer, which includes their family history. At that time, you may recommend additional screening tests (Ultrasoun d or MRI) as these tests may add significant information. A negative radiographic report should not delay biopsy if a dominant or clinically suspicious mass is present. Up to ten percent of cancers are not identified on mammography. A negative report may reinforce clinical impression. Adenosis and dense breasts may obscure an underlying neoplasm. False positive reports average 6 to 10%. Patient will receive a letter notifying them of these results.
== END 2023-02-15 01:12 ==
LOC: DI 00:52
PROVIDERS: PCP Nurse Practitioner Family; Visit Provider Nurse Practitioner Family
DX: R92.8 Other abnormal and inconclusive findings on diagnostic imaging of breast (principal)
CPT/HCPCS: 76642; 77063; 77067

== ENCOUNTER 2023-03-02 01:37 | Outpatient (CLI) | payer BC, SELFPAY ==
--- NOTE | 2023-03-02 07:29 | DI.US_ITS ---
APPROVED REPORT EXAM: Comprehensive 2D, Doppler, and color-flow Echocardiogram Patient Location: Out-Patient Second Shift Supervisor: Raúl Bolanos RDMS, RVT Indications: chest heaviness, GOLDBERG, family history of heart disease Other Information Study Quality: Fair. Technically limited study due to body habitus. Conclusion Normal left ventricular wall thickness and chamber size. Ejection fraction is 55 to 60%. Wall motio n is normal Normal right ventricular size and systolic function Both atria are normal in size There is no structural or hemodynamically significant valvular disease Estimated right ventricular systolic pressure is 18 mmHg Mildly dilated ascending aorta 3.48 cm Wall motion Left Ventricle The left ventricle is normal size. The left ventricular systolic function is normal. The left ventric ular ejection fraction is within the normal range. There is normal left ventricular wall thickness. T here is normal LV segmental wall motion. There is no ventricular septal defect visualized. LVEF is 58 %. Right Ventricle The right ventricle is normal size. Right ventricular systolic function is grossly normal. The RVSP i s 18.1 mmHg. Atria The left atrium size is normal. The right atrium size is normal. The interatrial septum is intact wit h no evidence for an atrial septal defect. Aortic Valve The aortic valve is normal in structure. Number of aortic valve leaflets could not be assessed. There is no aortic valvular stenosis. No aortic regurgitation is present. Mitral Valve The mitral valve is normal in structure. No evidence of mitral valve stenosis. Mild mitral regurgita tion. Tricuspid Valve The tricuspid valve is normal in structure. There is no tricuspid valve stenosis. Trace tricuspid reg urgitation. Pulmonic Valve Pulmonic valve is not well visualized. There is no pulmonic valvular stenosis. There is no pulmonic valvular regurgitation. Great Vessels The aortic root is normal in size. The ascending aorta is mildly dilated. Aortic arch is not well vis ualized. IVC is normal in size and collapses >50% with inspiration. Pericardium There is no pericardial effusion. 2D Dimensions IVSD d PLAX 0.92 cm F: 0.6-1.0 LV Vol A2C d MOD 97.1 mL LVPW d PLAX 0.99 cm F: 0.6 - 1.0 LV Vol A4C d MOD 117.1 mL LVID d PLAX 4.62 cm F: 3.8 - 5.2 LA vol/ BSA A2C s A-L 26.8 mL/m2 LVDs 3.15 cm F: 2.2 - 3.5 LA vol/ BSA A4C s A-L 30.4 mL/m2 Ao Root d 2.67 cm F: 2.7 - 3.3 LA Vol/ BSA Biplane s A-L 28.6 mL/m2 RA Area A4C 15.61 cm2 LA Area A4C s MOD 20.51 cm2 RA Vol/ BSA A4C s A-L 20.8 mL/m2 LA Area A2C s MOD 19.28 cm2 Ao Asc Diam d 3.48 cm F: 2.3 - 3.1 LV EF A4C MOD 57.3 % LV EF Teichholz 59.4 % LV EF A2C MOD 59.1 % LVEF (Westbrook's) 58.02 % F: 54 - 74 LV EF Biplane MOD 58.0 % LV Volume 78.22 mL F: 46 - 106 SV 61.79 mL LV Volume Index 36.72 mL/m2 F: 29 - 61 SV Index 28.98 mL/m2 LV Vol Biplane MOD 106.5 mL FS 31.45 % M-Mode TAPSE 2.90 cm (M/F) >1.7 LV Diastology MV E' medial 0.097 (>0.07 m/s) E/A Ratio 0.9 LV E/e MED 8.30 (<14) MV E Vmax 0.81 (0.4-1.3 m/s) MV E' lateral 0.092 (>0.1 m/s) MV A Vmax 0.90 (0.4-1.3 m/s) LV E/e LAT 8.75 (<14) MV E/A Ratio 0.87 MV E/E' medial 8.34 MV E/E' lateral 8.78 Aortic Valve LVOT Area 3.08 cm2 AoV Area Vmax 2.33 cm2 LVOT Vmax 1.36 m/s AoV Area/ BSA (Vmax) 1.09 cm2/m2 LVOT Mean Logan. 0.81 m/s BREEZY Mean Logan. 2.34 cm2 LVOT Peak Grad 7.4 mmHg BREEZY Mean Logan. Index 1.10 cm2/m2 LVOT Mean Grad 3.3 mmHg LVOT VTI 0.306 m LVOT Diam s 1.95 cm AoV Vmax 1.80 m/s Velocity Ratio 0.76 AoV Mean Logan. 1.07 m/s AoV Peak Grad 13.0 mmHg LVOT SV 94.20 mL AoV Mean Grad 5.5 mmHg AoV VTI 0.324 m AoV Area VTI 2.91 cm2 AoV Area/ BSA (VTI) 1.36 cm/m2 Mitral Valve MV DT 305 (160-240 msec) MV PHT 89 msec MV Area PHT 2.49 cm2 MV VTI 0.315 m MV Area VTI 2.99 (4.0-6.0 cm2) Pulmonary Valve PV Vmax 1.05 (0.5-1.5 m/s) RVOT Peak Gr. 1.48 mmHg PV Peak Grad 4.4 mmHg RVOT Mean Gr. 0.70 mmHg PV Mean Grad 2.4 mmHg RVOT VTI 0.115 m PV VTI 0.235 m RVOT Vmax 0.61 m/s Tricuspid Valve TR Peak Grad 15.1 mmHg TR Vmax 1.94 m/s RA Pressure 3.00 mmHg RVSP (TR) 18.1 mmHg
== END 2023-03-02 01:57 ==
LOC: DI 01:37
PROVIDERS: PCP Nurse Practitioner Family; Visit Provider Nurse Practitioner Family
DX: R07.89 Other chest pain (principal); Z82.49 Family history of ischemic heart disease and other diseases of the circulatory system
CPT/HCPCS: 93306

== ENCOUNTER 2023-05-10 04:25 | Outpatient (CLI) | payer BC, SELFPAY ==
[2023-05-10 13:44] LABS: Abs Immature Grans 0.02 10^3/uL (0.0-0.06); Absolute Basophil Count 0.03 10^3/uL (0.0-0.2); Absolute Lymphocyte Count 1.46 10^3/uL (1.2-3.4); Absolute Monocyte Count 0.53 10^3/uL (0.1-0.8); Absolute Neutrophil Count 5.32 10^3/uL (1.2-6.7); Basophils % 0.4; Eosinophils % 2.6; HCT 43.5 % (36.0-46.0); HGB 13.5 g/dL (11.2-15.7); Immature Grans % 0.3; Lymphocytes % 19.3; MCH 24.9 pg (27.0-33.0); MCV 80 fL (80-95); MPV 9.1 fL (8.0-11.0); Neutrophils % 70.4; Platelet Count 315 10^3/uL (130-400); RBC 5.43 10^6/uL (3.93-5.22); RDW 15.4 % (11.7-14.6); RDW-SD 44.1 fL; WBC 7.56 10^3/uL (4.4-10.8)
[2023-05-10 14:08] LABS: ALT 32 U/L (14-59); AST 16 U/L (15-37); Albumin 3.9 g/dL (3.4-5.0); Alkaline Phosphatase 99 U/L (46-116); Anion Gap 12.4 mmol/L (3-11); BUN 18 mg/dL (7-18); Bilirubin, Total 0.3 mg/dL (0.2-1.0); CO2 20.6 mmol/L (21.0-32.0); Calcium 9.3 mg/dL (8.5-10.1); Chloride 107 mmol/L (98-107); Estimated GFR 67.78 (mL/min/1.73m2); Glucose 103 mg/dL (74-106); Potassium 4.2 mmol/L (3.5-5.1); Sodium 140 mmol/L (136-145)
[2023-05-10 14:22] LABS: TSH (W/Ref FT4) 3.28 uIU/mL (0.36-3.74)
[2023-05-10 14:41] LABS: Hemoglobin A1C 5.3 % (<5.7)
[2023-05-11 09:41] LABS: IgA 77 mg/dL (85-499); IgG 850 mg/dL (610-1616); IgM 79 mg/dL (35-242); Kappa Free Light Chain 1.34 mg/dL (0.33-1.94); Lambda Free Light Chain 1.17 mg/dL (0.57-2.63)
[2023-05-11 14:38] LABS: Albumin 58.2 % (55.8-66.1); Albumin g/dL 4.4 g/dL (3.6-5.2); Alpha 1 g/dL 0.41 g/dL (0.15-0.40); Alpha 2 g/dL 0.89 g/dL (0.50-1.00); Beta g/dL 0.99 g/dL (0.60-1.20); Comment (See Note); Gamma g/dL 0.85 g/dL (0.60-1.60); Monoclonal Spike 5.7 % (None Seen); Monoclonal Spike g/dL 0.4 g/dL (None Seen); Total Protein 7.5 g/dL (6.3-8.2)
== END 2023-05-10 04:26 | disposition home or self-care (01) ==
PROVIDERS: PCP Nurse Practitioner Family; Visit Provider Internal Medicine Hematology & Oncology
DX: R73.03 Prediabetes (principal); R79.89 Other specified abnormal findings of blood chemistry; D47.2 Monoclonal gammopathy
CPT/HCPCS: 36415; 80053; 82784; 83036; 83883; 84165; 84443; 85025

== ENCOUNTER 2023-08-11 03:54 | Outpatient (CLI) | payer BC, SELFPAY ==
[2023-08-11 07:23] LABS: Abs Immature Grans 0.02 10^3/uL (0.0-0.06); Absolute Basophil Count 0.03 10^3/uL (0.0-0.2); Absolute Eosinophil Count 0.11 10^3/uL (0.0-0.7); Absolute Lymphocyte Count 1.21 10^3/uL (1.2-3.4); Absolute Monocyte Count 0.37 10^3/uL (0.1-0.8); Absolute Neutrophil Count 3.55 10^3/uL (1.2-6.7); Basophils % 0.6; Eosinophils % 2.1; HCT 44.5 % (36.0-46.0); Immature Grans % 0.4; Lymphocytes % 22.9; MCH 26.5 pg (27.0-33.0); MCHC 31.5 % (32.0-36.0); MCV 84 fL (80-95); MPV 9.3 fL (8.0-11.0); Platelet Count 270 10^3/uL (130-400); RBC 5.29 10^6/uL (3.93-5.22); RDW 13.8 % (11.7-14.6); RDW-SD 42.3 fL; WBC 5.29 10^3/uL (4.4-10.8)
[2023-08-11 08:01] LABS: ALT 22 U/L (14-59); AST 13 U/L (15-37); Albumin 3.6 g/dL (3.4-5.0); Alkaline Phosphatase 102 U/L (46-116); Anion Gap 8.2 mmol/L (3-11); BUN 15 mg/dL (7-18); Bilirubin, Total 0.3 mg/dL (0.2-1.0); CO2 23.8 mmol/L (21.0-32.0); CREATININE 1.1 mg/dL (0.55-1.02); Calcium 9.4 mg/dL (8.5-10.1); Chloride 106 mmol/L (98-107); Estimated GFR 60.46 (mL/min/1.73m2); Glucose 89 mg/dL (74-106); Potassium 3.7 mmol/L (3.5-5.1); Sodium 138 mmol/L (136-145); Total Protein 7.6 g/dL (6.4-8.2)
[2023-08-12 09:57] LABS: IgA 75 mg/dL (85-499); IgG 819 mg/dL (610-1616); IgM 74 mg/dL (35-242); Kappa Free Light Chain 1.44 mg/dL (0.33-1.94); Lambda Free Light Chain 1.12 mg/dL (0.57-2.63)
[2023-08-12 13:52] LABS: Albumin 60.5 % (55.8-66.1); Albumin g/dL 4.2 g/dL (3.6-5.2); Monoclonal Spike 5.8 % (None Seen); Monoclonal Spike g/dL 0.4 g/dL (None Seen); Total Protein 6.9 g/dL (6.3-8.2)
[2023-08-12 15:37] LABS: Comment (See Note)
== END 2023-08-11 03:55 | disposition home or self-care (01) ==
PROVIDERS: PCP Nurse Practitioner Family; Visit Provider Internal Medicine Hematology & Oncology
DX: D47.2 Monoclonal gammopathy (principal)
CPT/HCPCS: 36415; 80053; 82784; 83883; 84165; 85025

== ENCOUNTER 2023-10-27 04:52 | Outpatient (CLI) | payer BC, SELFPAY ==
[2023-10-27 10:17] LABS: Abs Immature Grans 0.05 10^3/uL (0.0-0.06); Absolute Basophil Count 0.03 10^3/uL (0.0-0.2); Absolute Eosinophil Count 0.09 10^3/uL (0.0-0.7); Absolute Lymphocyte Count 1.67 10^3/uL (1.2-3.4); Absolute Monocyte Count 0.59 10^3/uL (0.1-0.8); Absolute Neutrophil Count 4.31 10^3/uL (1.2-6.7); Basophils % 0.4; Eosinophils % 1.3; HCT 42.3 % (36.0-46.0); HGB 13.2 g/dL (11.2-15.7); Immature Grans % 0.7; Lymphocytes % 24.8; MCH 26.3 pg (27.0-33.0); MCHC 31.2 % (32.0-36.0); MCV 84 fL (80-95); MPV 8.8 fL (8.0-11.0); Monocytes % 8.8; Platelet Count 269 10^3/uL (130-400); RBC 5.01 10^6/uL (3.93-5.22); RDW 13.3 % (11.7-14.6); RDW-SD 40.9 fL; WBC 6.74 10^3/uL (4.4-10.8)
[2023-10-27 10:44] LABS: ALT 35 U/L (14-59); AST 15 U/L (15-37); Albumin 3.2 g/dL (3.4-5.0); Alkaline Phosphatase 80 U/L (46-116); Anion Gap 8.2 mmol/L (3-11); BUN 18 mg/dL (7-18); Bilirubin, Total 0.3 mg/dL (0.2-1.0); CO2 24.8 mmol/L (21.0-32.0); Calcium 9.1 mg/dL (8.5-10.1); Chloride 108 mmol/L (98-107); Estimated GFR 67.78 (mL/min/1.73m2); Glucose 85 mg/dL (74-106); Potassium 3.9 mmol/L (3.5-5.1); Sodium 141 mmol/L (136-145); Total Protein 6.7 g/dL (6.4-8.2)
== END 2023-10-27 04:53 | disposition home or self-care (01) ==
PROVIDERS: PCP Nurse Practitioner Family; Visit Provider Internal Medicine Rheumatology
DX: Z79.899 Other long term (current) drug therapy (principal); M06.09 Rheumatoid arthritis without rheumatoid factor, multiple sites
CPT/HCPCS: 36415; 80053; 85025

== ENCOUNTER 2024-02-02 05:38 | Outpatient (CLI) | payer BC, SELFPAY ==
[2024-02-02 07:21] LABS: Abs Immature Grans 0.02 10^3/uL (0.0-0.06); Absolute Basophil Count 0.02 10^3/uL (0.0-0.2); Absolute Eosinophil Count 0.23 10^3/uL (0.0-0.7); Absolute Lymphocyte Count 1.41 10^3/uL (1.2-3.4); Absolute Monocyte Count 0.45 10^3/uL (0.1-0.8); Absolute Neutrophil Count 2.84 10^3/uL (1.2-6.7); Basophils % 0.4; Eosinophils % 4.6; HCT 44.4 % (36.0-46.0); Immature Grans % 0.4; Lymphocytes % 28.4; MCH 27.5 pg (27.0-33.0); MCHC 31.5 % (32.0-36.0); MCV 87 fL (80-95); MPV 8.9 fL (8.0-11.0); Monocytes % 9.1; Neutrophils % 57.1; Platelet Count 262 10^3/uL (130-400); RBC 5.09 10^6/uL (3.93-5.22); RDW 13.6 % (11.7-14.6); RDW-SD 43.8 fL; WBC 4.97 10^3/uL (4.4-10.8)
[2024-02-02 08:00] LABS: ALT 32 U/L (14-59); AST 17 U/L (15-37); Albumin 3.9 g/dL (3.4-5.0); Alkaline Phosphatase 91 U/L (46-116); Anion Gap 11.3 mmol/L (3-11); BUN 14 mg/dL (7-18); Bilirubin, Total 0.4 mg/dL (0.2-1.0); CO2 25.7 mmol/L (21.0-32.0); Calcium 9.1 mg/dL (8.5-10.1); Chloride 106 mmol/L (98-107); Estimated GFR 67.36 (mL/min/1.73m2); Glucose 89 mg/dL (74-106); Potassium 3.7 mmol/L (3.5-5.1); Sodium 143 mmol/L (136-145); Total Protein 7.6 g/dL (6.4-8.2)
[2024-02-02 08:02] LABS: C-Reactive Protein < 0.50 mg/dL (<or=0.5)
== END 2024-02-02 05:39 | disposition home or self-care (01) ==
PROVIDERS: PCP Nurse Practitioner Family; Visit Provider Internal Medicine Rheumatology
DX: Z79.899 Other long term (current) drug therapy (principal); M06.09 Rheumatoid arthritis without rheumatoid factor, multiple sites
CPT/HCPCS: 36415; 80053; 85025; 86140

== ENCOUNTER 2024-03-15 05:08 | Outpatient (CLI) | payer BC, SELFPAY ==
[2024-03-15 16:43] LABS: Abs Immature Grans 0.02 10^3/uL (0.0-0.06); Absolute Basophil Count 0.03 10^3/uL (0.0-0.2); Absolute Eosinophil Count 0.32 10^3/uL (0.0-0.7); Absolute Lymphocyte Count 1.37 10^3/uL (1.2-3.4); Absolute Monocyte Count 0.69 10^3/uL (0.1-0.8); Absolute Neutrophil Count 2.85 10^3/uL (1.2-6.7); Basophils % 0.6 %; Eosinophils % 6.1 %; HCT 39.7 % (36.0-46.0); HGB 13.1 g/dL (11.2-15.7); Immature Grans % 0.4 %; Lymphocytes % 25.9 %; MCH 28.6 pg (27.0-33.0); MCV 87 fL (80-95); MPV 9.4 fL (8.0-11.0); Monocytes % 13.1 %; Neutrophils % 53.9 %; Platelet Count 272 10^3/uL (130-400); RBC 4.58 10^6/uL (3.93-5.22); RDW 13.2 % (11.7-14.6); WBC 5.28 10^3/uL (4.4-10.8)
[2024-03-15 17:16] LABS: Iron 50 ug/dL (50-170); Total Iron Binding Capacity 431 ug/dL (250-450); Transferrin Sat 12 % (15-50)
[2024-03-15 17:30] LABS: ALT 27 U/L (14-59); AST 9 U/L (15-37); Alkaline Phosphatase 82 U/L (46-116); Anion Gap 11.5 mmol/L (3-11); BUN 17 mg/dL (7-18); Bilirubin, Total 0.3 mg/dL (0.2-1.0); CO2 22.5 mmol/L (21.0-32.0); CREATININE 0.8 mg/dL (0.55-1.02); Calcium 9.2 mg/dL (8.5-10.1); Chloride 107 mmol/L (98-107); Estimated GFR 88.05 (mL/min/1.73m2); Ferritin 15 ng/mL (8-252); Glucose 98 mg/dL (74-106); Potassium 4.2 mmol/L (3.5-5.1); Sodium 141 mmol/L (136-145)
[2024-03-17 11:04] LABS: IgA 52 mg/dL (85-499); IgG 708 mg/dL (610-1616); IgM 50 mg/dL (35-242); Kappa Free Light Chain 0.86 mg/dL (0.33-1.94)
[2024-03-17 14:07] LABS: Albumin 64.2 % (55.8-66.1); Albumin g/dL 4.4 g/dL (3.6-5.2); Comment (See Note); Monoclonal Spike 5.6 % (None Seen); Monoclonal Spike g/dL 0.4 g/dL (None Seen); Total Protein 6.8 g/dL (6.3-8.2)
== END 2024-03-15 05:09 | disposition home or self-care (01) ==
PROVIDERS: PCP Nurse Practitioner Family; Visit Provider Nurse Practitioner Adult Health
DX: D50.8 Other iron deficiency anemias (principal); D47.2 Monoclonal gammopathy
CPT/HCPCS: 36415; 80053; 82784; 82728; 83540; 83550; 83883; 84165; 85025

== ENCOUNTER 2024-04-24 04:16 | Outpatient (CLI) | payer BC, SELFPAY ==
[2024-04-24 16:41] LABS: Abs Immature Grans 0.04 10^3/uL (0.0-0.06); Absolute Basophil Count 0.04 10^3/uL (0.0-0.2); Absolute Eosinophil Count 0.24 10^3/uL (0.0-0.7); Absolute Monocyte Count 0.56 10^3/uL (0.1-0.8); Absolute Neutrophil Count 4.52 10^3/uL (1.2-6.7); Basophils % 0.6 %; Eosinophils % 3.5 %; HCT 41.2 % (36.0-46.0); HGB 13.6 g/dL (11.2-15.7); Immature Grans % 0.6 %; Lymphocytes % 21.7 %; MCH 28.6 pg (27.0-33.0); MCV 87 fL (80-95); MPV 9.2 fL (8.0-11.0); Monocytes % 8.1 %; Neutrophils % 65.5 %; Platelet Count 287 10^3/uL (130-400); RBC 4.76 10^6/uL (3.93-5.22); RDW 12.8 % (11.7-14.6); RDW-SD 39.9 fL
[2024-04-24 17:31] LABS: ALT 29 U/L (14-59); AST 17 U/L (15-37); Albumin 3.8 g/dL (3.4-5.0); Alkaline Phosphatase 86 U/L (46-116); Anion Gap 12.2 mmol/L (3-11); BUN 19 mg/dL (7-18); Bilirubin, Total 0.37 mg/dL (0.2-1.0); C-Reactive Protein 0.51 mg/dL (<or=0.5); CO2 22.8 mmol/L (21.0-32.0); CREATININE 0.9 mg/dL (0.55-1.02); Calcium 9.1 mg/dL (8.5-10.1); Chloride 106 mmol/L (98-107); Estimated GFR 76.44 (mL/min/1.73m2); Glucose 92 mg/dL (74-106); Potassium 3.9 mmol/L (3.5-5.1); Sodium 141 mmol/L (136-145); Total Protein 7.4 g/dL (6.4-8.2)
[2024-04-24 17:51] LABS: Calculated LDL 111 mg/dL (<100); Cholesterol 196 mg/dL (<200); HDL Cholesterol 52 mg/dL (40-60); Triglyceride 165 mg/dL (<150); Vitamin B12 448 pg/mL (193-986); Vitamin D 25 Total 48.9 ng/mL (30-100)
[2024-04-25 20:15] LABS: Hepatitis C Ab w Rflx HCV PCR Negative (Negative)
[2024-04-25 20:22] LABS: HBs Antibody, Quant 12.2 mIU/mL (See Note); Hep B Surface Ab Positive (See Note); Hepatitis B Core Antibody Negative (Negative); Hepatitis B Surface Antigen Negative (Negative)
[2024-04-25 20:28] LABS: HIV-1/2 Ag & Ab Screen Negative (Negative)
== END 2024-04-24 04:17 | disposition home or self-care (01) ==
LOC: LBO 04:17
PROVIDERS: Internal Medicine Rheumatology; PCP Nurse Practitioner Family; Visit Provider Nurse Practitioner Family
DX: Z11.59 Encounter for screening for other viral diseases (principal); Z00.00 Encounter for general adult medical examination without abnormal findings; I10 Essential (primary) hypertension; E78.5 Hyperlipidemia, unspecified; Z11.4 Encounter for screening for human immunodeficiency virus [HIV]; K21.9 Gastro-esophageal reflux disease without esophagitis; E55.9 Vitamin D deficiency, unspecified
CPT/HCPCS: 36415; 80053; 80061; 82306; 86704; 86706; 86803; 87340; 87389; 82607; 85025; 86140

== ENCOUNTER → 2024-04-28 00:28 | Outpatient (CLI) | payer BC, SELFPAY ==
--- NOTE | 2024-04-28 07:45 | DI.MAMMO_ITS ---
Exam(s) MAMMO SCREENING EXAM: MAMMO SCREENING CLINICAL HISTORY: screening, Z12.39. TECHNIQUE: Bilateral full field digital CC and MLO mammographic images were obtained with 3D tomosyn thesis and utilizing computer aided detection (CAD). COMPARISON: Prior mammograms were reviewed. FINDINGS: No new left breast findings. No new findings in the immediate vicinity of the 2 separate biopsy gavi er devices in the left breast. In the right breast on the MLO view there is a small 5 x 3 millimeter nodular density again noted whi ch is unchanged from mammogram January 2023 and has apparently been shown to be a cyst on ultrasound ex amination of 02/15/2023. There are no new spiculated masses nor malignant appearing microcalcification groups. There is no significant architectural distortion nor skin thickening-retraction. IMPRESSION: Stable benign-appearing findings. No radiographic evidence of malignancy. BI-RADS Category 2 - Benign Findings Breast Density - Category B - Scattered areas of fibroglandular density Breast density Category C or D implies that the patient has dense breast tissue. Dense breast tissue can make it harder to find cancer on a mammogram. Dense breast tissue is also associated with an incr eased risk of breast cancer. This information about the result of the mammogram report was provided to the patient to raise their awareness. Use this report when you speak with the patient about their risks for breast cancer, which includes their family history. At that time, you may recommend additional screening tests (Ultrasoun d or MRI) as these tests may add significant information. A negative radiographic report should not delay biopsy if a dominant or clinically suspicious mass is present. Up to ten percent of cancers are not identified on mammography. A negative report may reinforce clinical impression. Adenosis and dense breasts may obscure an underlying neoplasm. False positive reports average 6 to 10%. Patient will receive a letter notifying them of these results.
== END ==
PROVIDERS: PCP Nurse Practitioner Family; Visit Provider Nurse Practitioner Family
DX: Z12.39 Encounter for other screening for malignant neoplasm of breast (principal); Z12.31 Encounter for screening mammogram for malignant neoplasm of breast
CPT/HCPCS: 77063; 77067

== ENCOUNTER 2024-08-17 09:48 | Day surgery (SDC) | payer BC, SELFPAY ==
--- NOTE | 2024-08-17 09:50 | W.ANESPRE ---
General Info Date of Service Date Performed: 08/17/24 Height: 5 ft 4 in Weight: 91.626 kg Body Mass Index (BMI): 34.7 Surgical Procedure: Operation Date: 08/17/24 11:05 Proposed Procedure Side Surgeon p Colonoscopy/Gastroscopy Mateo Anderson MD Meds Allergies and Home Medications Allergies Allergy/AdvReac Type Severity Reaction Status Date / Time latex Allergy Unknown Anaphylaxsi Verified 08/17/24 10:05 s erythromycin base AdvReac Unknown [place]/Vomi Verified 08/17/24 10:05 ting Hljotys-OCK-JpI Reductase AdvReac Unknown Myalgias Verified 08/17/24 10:05 Inhibitor (Jxlshhd-Hhi-Opa Reductase Inhibitor) Home Medication ?Medication ?Instructions ?Recorded diclofenac sodium 75 mg 75 mg PO BID 10/31/21 tablet,delayed release cetirizine 10 mg capsule (Zyrtec) 10 mg PO DAILY PRN 04/09/22 fexofenadine 180 mg tablet 180 mg PO DAILY PRN 05/19/22 (Maddie Allergy) hydroxychloroquine 200 mg tablet 200 mg PO DAILY 01/13/23 ondansetron HCl 8 mg tablet 8 mg PO TID PRN nausea and 08/04/23 vomiting #60 tabs ezetimibe 10 mg tablet (Zetia) 10 mg PO DAILY #90 tab-caps 08/25/23 losartan 100 mg tablet 100 mg PO DAILY #90 tabs 08/25/23 cholecalciferol (vitamin D3) 50 2,000 unit PO BID #180 caps 09/07/23 mcg (2,000 unit) capsule omeprazole 20 mg capsule,delayed 20 mg PO BID #180 tab-caps 10/04/23 release topiramate 100 mg tablet 100 mg PO DAILY #90 tabs 10/04/23 bupropion HCl 150 mg tablet,12 hr 150 mg PO BID #180 tabs 10/28/23 sustained-release fluticasone furoate 200 1 inh inhalation DAILY #3 ea 12/09/23 mcg-vilanterol 25 mcg/dose inhalation powder (Breo Ellipta) montelukast 10 mg tablet 10 mg PO QHS #90 tabs 03/01/24 albuterol sulfate 90 mcg/actuation 2 puff inhalation Q6H PRN 04/21/24 aerosol inhaler shortness of breath or wheezing #8.5 grams magnesium 250 mg tablet 250 mg PO DAILY 04/21/24 sulfasalazine 500 mg 1 g PO BID 04/21/24 tablet,delayed release estradiol 1 mg tablet (Estrace) 1 mg PO DAILY #90 tabs 04/24/24 semaglutide (weight loss) 1.7 1.7 mg (0.75 mL) subcut QWEEK #12 07/18/24 mg/0.75 mL subcutaneous pen SYRGS injector bisacodyl 5 mg tablet,delayed 5 mg PO ONCE #4 tabs 07/27/24 release (Dulcolax (bisacodyl)) polyethylene glycol 3350 17 17 g PO ONCE #238 grams 07/27/24 gram/dose oral powder Current Visit Medications: Current Medications Generic Name Dose Route Start Last Admin Trade Name Freq PRN Reason Stop Dose Admin Ringer's Solution 1,000 mls @ 80 mls/hr 08/17/24 06:00 IV 08/17/24 23:59 INFUSION JOHN IV Miscellaneous Supplies 1 each 08/17/24 06:00 Iv Access IV 08/17/24 23:59 DIRECTED JOHN Sodium Chloride 0 ml 08/17/24 06:00 Normal Saline Flush 10 Ml Syr IV 08/17/24 23:59 PRN PRN Sodium Chloride 0 ml 08/17/24 06:00 Normal Saline 10 Ml Vial IJ 08/17/24 23:59 DIRECTED PRN Sterile Water 0 ml 08/17/24 06:00 Water,Injection,Sterile 10 Ml Vial IJ 08/17/24 23:59 DIRECTED PRN PFSH Active Problems Active Problems: Problem Status Onset Code Vasomotor symptoms due to menopause Acute N95.1 Ascending aorta dilation Chronic I77.810 Iron deficiency Chronic E61.1 Obesity, Class III, BMI 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 obesity) Chronic E66.01 Inflammatory arthritis Chronic M19.90 Major depressive disorder, recurrent Chronic F33.9 Asthma Chronic J45.909 MGUS (monoclonal gammopathy of unknown significance) Chronic D47.2 Right carpal tunnel syndrome Chronic G56.01 Allergic rhinitis Chronic J30.9 Migraine headache Chronic G43.909 GERD (gastroesophageal reflux disease) Chronic K21.9 Generalized anxiety disorder Chronic F41.1 Obstructive sleep apnea Chronic G47.33 Hyperlipidemia Chronic E78.5 Essential hypertension Chronic I10 Medical History Medical History Recurrent sinus infections Iron deficiency anemia Type 2 diabetes mellitus Per pt. no longer has Renal calculus Surgical History Surgical History S/P partial hysterectomy (~2011) Ovaries remain H/O section (07/19/00) Hx of adenoidectomy (~1975) S/P cholecystectomy (~1993) Tobacco Smoking/Tobacco Use Status: Never Passive smoking exposure: No Second hand exposure: Yes Alcohol Alcohol Intake: current Alcohol intake frequency: a few times a month Alcohol type: beer, wine and hard liquor Substance Use Substance use: Never Substance use type: does not use Prental History History 1 Para 1 Hx # Term Pregnancies Multiple births Hx # Pregnancies Ectopic pregnancies AB induced Hx Number of Living Children 1 AB spontaneous Vital Signs and Lab Results Vital Signs Most Recent Vital Signs in EMR: Temp Pulse Resp BP Pulse Ox 36.3 C L 76 20 121/79 97 08/17/24 10:10 08/17/24 10:10 08/17/24 10:10 08/17/24 10:10 08/17/24 10:10 Lab Results Blood Type / Crossmatch: No Data to Display Complete Blood Count: No Data to Display Complete Metabolic Panel: No Data to Display Liver Function Panel: No Data to Display Coagulation Panel: No Data to Display Cardiac Panel: No Data to Display Arterial Blood Gas: No Data to Display Venous Blood Gas: No Data to Display Pancreas Panel: No Data to Display Thyroid Panel: No Data to Display Infectious Disease: No Data to Display Blood Cultures: No Data to Display Toxicology Panel: No Data to Display Panel: No Data to Display Imaging and Studies Imaging and Studies Study information below may be from another EMR and interpreted by another provider. Please see original notes in EMR for more complete details. EKG Summary: 12/2022: Conclusion Sinus rhythm...normal P axis, V-rate 50- 99 Normal Electrocardiogram Stress Test Summary: 02/2023 MPI Conclusion Myocardial perfusion is normal without ischemia or evidence of prior infarction EF is 65%, wall motion is normal Echocardiogram Summary: 02/2023 Conclusion Normal left ventricular wall thickness and chamber size. Ejection fraction is 55 to 60%. Wall motion is normal Normal right ventricular size and systolic function Both atria are normal in size There is no structural or hemodynamically significant valvular disease Estimated right ventricular systolic pressure is 18 mmHg Mildly dilated ascending aorta 3.48 cm Anesthesia Assessment and Plan Anesthesia History Personal History: No History of Anesthesia Complications Family History: No Family History of Anesthesia Complications Exercise Tolerance Exercise Tolerance: Metabolic Equivalents>4 Pertinent Negatives Pertinent Negatives: No Symptoms of GERD Cardiac & Pulmonary Exam Cardiac Exam: Normal S1/S2 Heart Sounds Pulmonary Exam: Clear Bilateral Breath Sounds Implantable Cardiac Device Does patient have a Pacemaker or an ICD?: No Airway Exam Known Difficult Airway: No Mallampati Class: 1 Mouth Opening: Normal (> 3cm) Thyromental Distance: Greater than 3 cm Neck Range of Motion: Full ROM Neck Circumference: Normal Teeth Condition: Normal Dentition ASA Classification ASA Score: ASA 2 Emergency Case?: No NPO Status NPO Status: NPO Clears >2 hours, Solids >8 hours Status Status: History of Hysterectomy Anesthesia Plan Resuscitation Status: Full Code Anesthesia Technique: General Anesthesia Airway Planned: Natural Airway Monitors Used: Standard Monitors
[2024-08-17 10:10] VITALS: BP 121/79; PULSE 76; RESP 20; TEMP 36.3; O2SAT 97
[2024-08-17] MEDS: Lactated Ringers 1,000 ML 80 ML IV (10:31)
[2024-08-17 10:40] VITALS: BMI 34.7
--- NOTE | 2024-08-17 11:04 | STOM_PTH ---
PATIENT: Maryan Ward LOC: [facility] U#:[id number] AGE/SX: 53/F ROOM: RE08/17/[address]: Mateo Anderson : 1970 BED: DIS: 08/17/2024 SPEC #: [id number] RECD: 08/17/24 12:57 STATUS: LISA RE #: [id number] JACKSON: 08/17/24 11:[address]: Mateo Anderson DEPT: Surgical Specimen RECD BY: Kiley Tang ENTERED: 08/17/24 12:57 SP TYPE: STOMACH OTHR DR: ZAYRA Watts Tissues: 1 - STOMACH BIOPSY 2 - STOMACH BIOPSY Procedures: GROSS AND MICRO LEVEL 4 Comments: [id number]
--- NOTE | 2024-08-17 11:10 | ENDO_ITS ---
Date of service: 08/17/24 Time of Service: 11:10 Endoscopy Report PROCEDURE DESCRIPTION: PROCEDURES PERFORMED: 1. EGD with biopsies 2. Cold forceps polypectomy PREOPERATIVE DIAGNOSIS: Adenomatous stomach polyp POSTOPERATIVE DIAGNOSIS: Stomach polyps, minimal/mild antral gastritis/g astropathy SURGEON: Inés Anderson MD INDICATION FOR PROCEDURE: 53-year-old woman had an EGD done in the past and an adenomatous polyp was removed. She has no symptoms of concern and presents for surveillance. FINDINGS: D2/D3 = normal D1/bulb = normal - no ulcers or inflammation Pylorus = normal Antrum = appears minimally/mildly irritated/inflamed - gastritis or gastropathy. Isolated to antrum only. No ulcers, cold forceps biopsies were taken to assess and rule out H. pylori Body = normal appearance Fundus = there are 6 small, 3-5 mm benign?appearing fundic polyps. They do not appear to be adenomatous visually. I removed the largest with cold forceps technique because of the history and to confirm benign character. Cardia = normal Hiatus = no obvious hiatal hernia. Distal esophagus = no inflammation, no esophagitis, no Jorge's, no stricture. I did not take biopsies because it appeared normal and she has no symptoms to suggest esophagus problems. Mid esophagus = normal Proximal esophagus/hypopharynx/vocal cords = normal SURVEILLANCE-INTERVAL/FOLLOW-UP: No further surveillance should be needed as long as path confirms non-? adenomatous polyp. Specimens: Yes EBL: Minimal COMPLICATIONS: None Procedure in detail: The patient gave written consent and was in agreement with the indications, the potential risks as well as the benefits of the procedure. The patient was taken to the endoscopy suite and laid on their left side. Anesthesia was given which was tolerated well. We performed a timeout and we are in agreement I started the procedure. A well-lubricated endoscope was gently and carefully advanced down the esophagus, into the stomach the scope was and through the pylorus into the duodenum. The scope was then slowly withdrawn with the above-noted findings/interventions. The patient tolerated the procedure well.
[2024-08-17 11:13] VITALS: BP 120/73; PULSE 75; RESP 18; TEMP 36.8; O2SAT 96
--- NOTE | 2024-08-17 11:16 | W.ANESPOSTOP ---
Postoperative Evaluation Date, Time and Location Date Performed: 08/17/24 Time Performed: 11:18 Patient Location: Day Surgery Unit Vital Signs Most Recent Imported Vital Signs: Most Recent Vital Signs Temp Pulse Resp BP Pulse Ox 36.3 C L 76 20 121/79 97 08/17/24 10:10 08/17/24 10:10 08/17/24 10:10 08/17/24 10:10 08/17/24 10:10 Assessment Mental Status: Awake (Alert & Oriented to Patient Baseline) Airway and Respiratory Function: Patent airway with normal (patient baseline) respiratory exam Cardiovascular Function: Hemodynamically Stable Hydration Status: Adequately Hydrated Nausea & Vomiting: No Nausea or Vomiting Pain: Pt. Denies Any Pain Peripheral Nerve Block: Patient did not receive a nerve block
[2024-08-17 11:32] VITALS: BP 109/70; PULSE 71; RESP 16; TEMP 36.5; O2SAT 97
--- NOTE | 2024-08-17 11:34 | W.PM.DSUDISC ---
Date of service: 08/17/24 Time of Service: 11:35 Discharge Plan Disposition Patient Disposition: Home Condition: Good Discharge Details Attending Provider: Mateo Anderson Primary Care Provider: Cammie Gonzalez Home Meds and New Rx's Prescriptions: No Action magnesium 250 mg tablet 250 mg PO DAILY bisacodyl [Dulcolax (bisacodyl)] 5 mg tablet,delayed release (DR/EC) 5 mg PO ONCE Qty: 4 0RF Rx Instructions: Take per colonoscopy instructions provided by ordering providers office polyethylene glycol 3350 17 gram/dose powder 17 g PO ONCE Qty: 238 0RF Rx Instructions: Take per colonoscopy instructions provided by ordering providers office diclofenac sodium 75 mg tablet,delayed release (DR/EC) 75 mg PO BID hydroxychloroquine 200 mg tablet 200 mg PO DAILY fexofenadine [Maddie Allergy] 180 mg tablet 180 mg PO DAILY PRN losartan 100 mg tablet 100 mg PO DAILY Qty: 90 3RF ezetimibe [Zetia] 10 mg tablet 10 mg PO DAILY Qty: 90 3RF sulfasalazine 500 mg tablet,delayed release (DR/EC) 1 g PO BID albuterol sulfate 90 mcg/actuation HFA aerosol inhaler 2 puff inhalation Q6H PRN (Reason: shortness of breath or wheezing) Qty: 8.5 3RF estradiol [Estrace] 1 mg tablet 1 mg PO DAILY Qty: 90 3RF Zyrtec 10 mg capsule 10 mg PO DAILY PRN ondansetron HCl 8 mg tablet 8 mg PO TID PRN (Reason: nausea and vomiting) Qty: 60 0RF cholecalciferol (vitamin D3) 50 mcg (2,000 unit) capsule 2,000 unit PO BID Qty: 180 3RF omeprazole 20 mg capsule,delayed release(DR/EC) 20 mg PO BID Qty: 180 3RF topiramate 100 mg tablet 100 mg PO DAILY Qty: 90 3RF bupropion HCl 150 mg tablet sustained-release 12 hr 150 mg PO BID Qty: 180 3RF fluticasone furoate-vilanterol [Breo Ellipta] 200-25 mcg/dose blister with device 1 inh inhalation DAILY Qty: 3 3RF montelukast 10 mg tablet 10 mg PO QHS Qty: 90 3RF semaglutide (weight loss) 1.7 mg/0.75 mL pen injector 1.7 mg subcut QWEEK Qty: 12 3RF Discharge Instructions Additional Instructions: FINDINGS: Nothing to be concerned about. 6 small polyps are in your stomach. They are common. They are small and look benign. Doubtful they have any risk. The largest one was removed to confirm that it is benign. Again, nothign to worry about. You probably do NOT need to do another EGD. Activity:: Activity as Tolerated Diet:: As Tolerated
== END 2024-08-17 11:43 | disposition home or self-care (01) ==
PROVIDERS: PCP Nurse Practitioner Family; Visit Provider Student in an Organized Health Care Education/Training Program
PROC: (CPT 43239; principal; 2024-08-17 11:00)
DX: K31.7 Polyp of stomach and duodenum; K21.9 Gastro-esophageal reflux disease without esophagitis; G47.33 Obstructive sleep apnea (adult) (pediatric); I10 Essential (primary) hypertension; F33.9 Major depressive disorder, recurrent, unspecified
CPT/HCPCS: 43239; 00123; 88305; J2704

== ENCOUNTER 2024-08-18 01:48 | Outpatient (CLI) | payer BC, SELFPAY ==
[2024-08-18 16:32] LABS: Abs Immature Grans 0.02 10^3/uL (0.0-0.06); Absolute Basophil Count 0.02 10^3/uL (0.0-0.2); Absolute Eosinophil Count 0.24 10^3/uL (0.0-0.7); Absolute Lymphocyte Count 1.68 10^3/uL (1.2-3.4); Absolute Monocyte Count 0.53 10^3/uL (0.1-0.8); Absolute Neutrophil Count 3.45 10^3/uL (1.2-6.7); Basophils % 0.3 %; HCT 44.1 % (36.0-46.0); HGB 13.9 g/dL (11.2-15.7); Immature Grans % 0.3 %; Lymphocytes % 28.3 %; MCH 27.9 pg (27.0-33.0); MCHC 31.5 % (32.0-36.0); MCV 88 fL (80-95); MPV 9.4 fL (8.0-11.0); Monocytes % 8.9 %; Neutrophils % 58.2 %; Platelet Count 254 10^3/uL (130-400); RBC 4.99 10^6/uL (3.93-5.22); RDW 13.3 % (11.7-14.6); RDW-SD 43.3 fL; WBC 5.94 10^3/uL (4.4-10.8)
[2024-08-18 17:40] LABS: ALT 24 U/L (14-59); AST 14 U/L (15-37); Albumin 3.4 g/dL (3.4-5.0); Alkaline Phosphatase 81 U/L (46-116); Anion Gap 8.3 mmol/L (3-11); BUN 13 mg/dL (7-18); Bilirubin, Total 0.24 mg/dL (0.2-1.0); CO2 25.7 mmol/L (21.0-32.0); CREATININE 0.9 mg/dL (0.55-1.02); Calcium 8.9 mg/dL (8.5-10.1); Chloride 109 mmol/L (98-107); Estimated GFR 76.44 (mL/min/1.73m2); Glucose 113 mg/dL (74-106); Potassium 3.9 mmol/L (3.5-5.1); Sodium 143 mmol/L (136-145); Total Protein 7.2 g/dL (6.4-8.2)
[2024-08-18 17:46] LABS: C-Reactive Protein < 0.50 mg/dL (<or=0.5)
== END 2024-08-18 01:49 | disposition home or self-care (01) ==
PROVIDERS: PCP Nurse Practitioner Family; Visit Provider Internal Medicine Rheumatology
DX: Z79.899 Other long term (current) drug therapy (principal); M06.09 Rheumatoid arthritis without rheumatoid factor, multiple sites
CPT/HCPCS: 36415; 80053; 85025; 86140

== ENCOUNTER 2024-11-22 04:05 | Outpatient (CLI) | payer BC, SELFPAY ==
[2024-11-22 12:22] LABS: Abs Immature Grans 0.03 10^3/uL (0.0-0.06); Absolute Basophil Count 0.03 10^3/uL (0.0-0.2); Absolute Lymphocyte Count 1.63 10^3/uL (1.2-3.4); Absolute Monocyte Count 0.61 10^3/uL (0.1-0.8); Absolute Neutrophil Count 3.88 10^3/uL (1.2-6.7); Basophils % 0.5 %; Eosinophils % 3.1 %; HCT 43.4 % (36.0-46.0); HGB 13.9 g/dL (11.2-15.7); Immature Grans % 0.5 %; Lymphocytes % 25.5 %; MCH 28.5 pg (27.0-33.0); MCV 89 fL (80-95); MPV 9.2 fL (8.0-11.0); Monocytes % 9.6 %; Neutrophils % 60.8 %; Platelet Count 301 10^3/uL (130-400); RBC 4.87 10^6/uL (3.93-5.22); RDW-SD 42.3 fL; WBC 6.38 10^3/uL (4.4-10.8)
[2024-11-22 13:13] LABS: Iron 56 ug/dL (50-170); Total Iron Binding Capacity 458 ug/dL (250-450); Transferrin Sat 12 % (15-50)
[2024-11-22 13:22] LABS: ALT 23 U/L (14-59); AST 14 U/L (15-37); Albumin 3.6 g/dL (3.4-5.0); Alkaline Phosphatase 81 U/L (46-116); Anion Gap 10.8 mmol/L (3-11); BUN 17 mg/dL (7-18); Bilirubin, Total 0.26 mg/dL (0.2-1.0); CO2 24.2 mmol/L (21.0-32.0); CREATININE 0.9 mg/dL (0.55-1.02); Calcium 9.5 mg/dL (8.5-10.1); Chloride 108 mmol/L (98-107); Estimated GFR 75.97 (mL/min/1.73m2); Ferritin 13 ng/mL (8-252); Glucose 79 mg/dL (74-106); Potassium 3.9 mmol/L (3.5-5.1); Sodium 143 mmol/L (136-145); Total Protein 7.3 g/dL (6.4-8.2)
[2024-11-22 14:05] LABS: C-Reactive Protein < 0.50 mg/dL (<or=0.5)
[2024-11-23 10:24] LABS: IgA 48 mg/dL (85-499); IgG 698 mg/dL (610-1616); IgM 61 mg/dL (35-242); Kappa Free Light Chain 1.03 mg/dL (0.33-1.94); Lambda Free Light Chain 0.87 mg/dL (0.57-2.63)
[2024-11-23 12:35] LABS: Albumin 62.5 % (55.8-66.1); Albumin g/dL 4.2 g/dL (3.6-5.2); Comment (See Note); Monoclonal Spike 5.6 % (None Seen); Monoclonal Spike g/dL 0.4 g/dL (None Seen); Total Protein 6.7 g/dL (6.3-8.2)
== END 2024-11-22 04:06 | disposition home or self-care (01) ==
PROVIDERS: Internal Medicine Rheumatology; PCP Nurse Practitioner Family; Visit Provider Internal Medicine Hematology & Oncology
DX: D47.2 Monoclonal gammopathy (principal); D50.8 Other iron deficiency anemias; Z79.899 Other long term (current) drug therapy; M06.09 Rheumatoid arthritis without rheumatoid factor, multiple sites
CPT/HCPCS: 36415; 80053; 82784; 82728; 83540; 83550; 83883; 84165; 85025; 86140

== ENCOUNTER 2025-01-17 02:19 | Outpatient (CLI) | payer BC, SELFPAY ==
[2025-01-17 11:15] LABS: Abs Immature Grans 0.03 10^3/uL (0.0-0.06); Absolute Basophil Count 0.03 10^3/uL (0.0-0.2); Absolute Eosinophil Count 0.14 10^3/uL (0.0-0.7); Absolute Lymphocyte Count 1.61 10^3/uL (1.2-3.4); Absolute Monocyte Count 0.47 10^3/uL (0.1-0.8); Absolute Neutrophil Count 3.66 10^3/uL (1.2-6.7); Basophils % 0.5 %; Eosinophils % 2.4 %; HCT 46.7 % (36.0-46.0); HGB 15.1 g/dL (11.2-15.7); Immature Grans % 0.5 %; Lymphocytes % 27.1 %; MCHC 32.3 % (32.0-36.0); MCV 90 fL (80-95); MPV 9.2 fL (8.0-11.0); Monocytes % 7.9 %; Neutrophils % 61.6 %; Platelet Count 263 10^3/uL (130-400); RDW 12.8 % (11.7-14.6); RDW-SD 42.2 fL; WBC 5.94 10^3/uL (4.4-10.8)
[2025-01-17 11:48] LABS: ALT 25 U/L (14-59); AST 15 U/L (15-37); Albumin 3.8 g/dL (3.4-5.0); Alkaline Phosphatase 71 U/L (46-116); Anion Gap 9.2 mmol/L (3-11); BUN 16 mg/dL (7-18); Bilirubin, Total 0.3 mg/dL (0.2-1.0); CO2 23.8 mmol/L (21.0-32.0); CREATININE 0.9 mg/dL (0.55-1.02); Calcium 9.4 mg/dL (8.5-10.1); Chloride 108 mmol/L (98-107); Estimated GFR 75.97 (mL/min/1.73m2); Ferritin 196 ng/mL (8-252); Glucose 87 mg/dL (74-106); Potassium 3.8 mmol/L (3.5-5.1); Sodium 141 mmol/L (136-145); Total Protein 7.4 g/dL (6.4-8.2)
[2025-01-17 11:53] LABS: Iron 73 ug/dL (50-170); Total Iron Binding Capacity 344 ug/dL (250-450); Transferrin Sat 21 % (15-50)
== END 2025-01-17 02:20 | disposition home or self-care (01) ==
PROVIDERS: PCP Nurse Practitioner Family; Visit Provider Internal Medicine Hematology & Oncology
DX: D50.9 Iron deficiency anemia, unspecified (principal)
CPT/HCPCS: 36415; 80053; 82728; 83540; 83550; 85025

== ENCOUNTER 2025-04-10 03:33 | Outpatient (CLI) | payer BC, SELFPAY ==
[2025-04-10 14:11] LABS: Abs Immature Grans 0.03 10^3/uL (0.0-0.06); Absolute Basophil Count 0.04 10^3/uL (0.0-0.2); Absolute Lymphocyte Count 1.63 10^3/uL (1.2-3.4); Absolute Monocyte Count 0.52 10^3/uL (0.1-0.8); Absolute Neutrophil Count 3.01 10^3/uL (1.2-6.7); Basophils % 0.7 %; Eosinophils % 5.4 %; HCT 45.9 % (36.0-46.0); HGB 14.6 g/dL (11.2-15.7); Immature Grans % 0.5 %; Lymphocytes % 29.5 %; MCH 29.3 pg (27.0-33.0); MCHC 31.8 % (32.0-36.0); MCV 92 fL (80-95); MPV 9.3 fL (8.0-11.0); Monocytes % 9.4 %; Neutrophils % 54.5 %; Platelet Count 246 10^3/uL (130-400); RBC 4.99 10^6/uL (3.93-5.22); RDW 12.7 % (11.7-14.6); RDW-SD 42.4 fL; WBC 5.53 10^3/uL (4.4-10.8)
[2025-04-10 14:44] LABS: ALT 31 U/L (14-59); AST 15 U/L (15-37); Albumin 3.9 g/dL (3.4-5.0); Alkaline Phosphatase 85 U/L (46-116); Anion Gap 8.5 mmol/L (3-11); BUN 14 mg/dL (7-18); Bilirubin, Total 0.3 mg/dL (0.2-1.0); CO2 27.5 mmol/L (21.0-32.0); CREATININE 0.9 mg/dL (0.55-1.02); Calcium 8.9 mg/dL (8.5-10.1); Chloride 105 mmol/L (98-107); Estimated GFR 75.97 (mL/min/1.73m2); Ferritin 138 ng/mL (8-252); Glucose 83 mg/dL (74-106); Potassium 3.9 mmol/L (3.5-5.1); Sodium 141 mmol/L (136-145); Total Protein 7.6 g/dL (6.4-8.2)
[2025-04-10 14:49] LABS: Iron 63 ug/dL (50-170); Total Iron Binding Capacity 355 ug/dL (250-450); Transferrin Sat 18 % (15-50)
== END 2025-04-10 03:34 | disposition home or self-care (01) ==
PROVIDERS: PCP Nurse Practitioner Family; Visit Provider Internal Medicine Hematology & Oncology
DX: D50.9 Iron deficiency anemia, unspecified (principal)
CPT/HCPCS: 36415; 80053; 82728; 83540; 83550; 85025

== ENCOUNTER 2025-05-20 08:31 | Emergency (ER) | payer BC, SELFPAY ==
[2025-05-20 08:43] VITALS: BP 165/108; PULSE 75; RESP 16; TEMP 36.4; O2SAT 95
--- NOTE | 2025-05-20 08:59 | DI.CT_ITS ---
Exam(s) CT RENAL COLIC WO EXAM: CT RENAL COLIC WO CLINICAL HISTORY: right flank pain. TECHNIQUE: Imaging Protocol: Axial computed tomography images with coronal and sagittal reformatted images were created and reviewed. Oral: yes / no COMPARISON: CT CT CHEST/ABD/PEL W from 08/28/2022 CT,NM,TMT NM MPI REST STRESS GRP from 02/01/2023 FINDINGS: Lung Bases: No acute findings. Liver: Normal density. No suspicious mass. Gallbladder and biliary tract: Cholecystectomy. No biliary dilation. Pancreas: Normal density. No abnormal calcifications or inflammatory process. Spleen: Normal. Kidneys: Normal size, contour and axis. Nxkk-sz-[id number] right hydronephrosis secondary to a 2 millimeter calculus in the proximal right ureter. Mild perinephric stranding. Punctate left renal calculus. No suspicious masses seen. Adrenal glands: No masses seen. Lymph nodes: Within normal limits. Vasculature: Abdominal aorta non-dilated. Soft tissues: Unremarkable. Bladder: Nearly empty. No wall thickening. No mass or calculi. Bowel: No obstruction or bowel wall thickening. Appendix normal. Peritoneal cavity: No ascites. No focal collection. No mesenteric inflammatory response. Reproductive organs: Hysterectomy. Bones: Degenerative changes in the spine. IMPRESSION: Hxqq-yr-vymxzpym right hydronephrosis secondary to 2 millimeter obstructing stone in the upper right ureter. The preliminary [facility] report was reviewed. RADIATION DOSE DELIVERED: Total DLP Total DLP DATA REPOSITORY: All CT scans at this facility are submitted to the National Radiology Data Registry (NRDR) Dose Index Registry (DIR) with the [employer] ([employer]). RADIATION OPTIMIZATION: All CT scans at this facility use at least one of these dose optimization techniques: automated exposure control; mA and/or kV adjustment per patient size (includes targeted exams where dose is matched to clinical indication); or iterative reconstruction.
--- NOTE | 2025-05-20 08:59 | W.ED.GENAD ---
Discharge Plan Disposition Patient Disposition: Home Condition: Stable Discharge Details Clinical Impression: Calculus of right ureter Primary Care Provider: Cammie Gonzalez ED Provider: Baljeet Michele [place] Meds and New Rx's Prescriptions: New ondansetron 4 mg tablet,disintegrating 4 mg PO Q8H PRN (Reason: nausea and vomiting) Qty: 30 0RF ketorolac 10 mg tablet 10 mg PO Q8H PRN5 Days Qty: 15 0RF Rx Instructions: maximum total duration of 5 days from all oral, intranasal, or parenteral formulations Continued magnesium 250 mg tablet 250 mg PO DAILY hydroxychloroquine 200 mg tablet 200 mg PO DAILY albuterol sulfate 90 mcg/actuation HFA aerosol inhaler 2 puff inhalation Q6H PRN (Reason: shortness of breath or wheezing) Qty: 8.5 3RF bupropion HCl 150 mg tablet sustained-release 12 hr 150 mg PO BID Qty: 180 3RF fluticasone furoate-vilanterol [Breo Ellipta] 200-25 mcg/dose blister with device 1 inh inhalation DAILY Qty: 3 3RF ondansetron HCl 8 mg tablet 8 mg PO TID PRN (Reason: nausea and vomiting) Qty: 60 0RF Patient Comments: ran out of medications Zyrtec 10 mg capsule 10 mg PO DAILY PRN semaglutide (weight loss) 1.7 mg/0.75 mL pen injector 1.7 mg subcut QWEEK Qty: 12 3RF ezetimibe [Zetia] 10 mg tablet 10 mg PO DAILY Qty: 90 3RF cholecalciferol (vitamin D3) 50 mcg (2,000 unit) capsule 2,000 unit PO BID Qty: 180 3RF omeprazole 20 mg capsule,delayed release(DR/EC) 20 mg PO BID Qty: 180 3RF losartan 100 mg tablet 100 mg PO DAILY Qty: 90 3RF topiramate 100 mg tablet 100 mg PO DAILY Qty: 90 3RF estradiol [Estrace] 1 mg tablet 1 mg PO DAILY Qty: 90 3RF montelukast 10 mg tablet 10 mg PO QHS Qty: 90 3RF No Action diclofenac sodium 75 mg tablet,delayed release (DR/EC) 75 mg PO BID Discharge Instructions Additional Instructions: I have placed you on our follow-up list to see urology. You have a 2 mm kidney stone that will likely pass on its own. If you have uncontrolled pain, fevers or persistent vomiting return to the emergency department for reevaluation. HPI General Mode of arrival: ambulatory. Date/Time Provider Initiated Documentation: 05/20/25 08:32. Limitations to Documentation: no limitations. Information obtained by: patient. History of Present Illness 54 year old F presents to the emergency department with the chief complaint of right flank pain, described as moderate, Quality is described as aching, and is localized to the back. Patient reports no radiation. Patient started experiencing this day(s) (1) and it has been constant. No relieving factors improve symptom(s), No exacerbating factors reported . Patient notes nausea/vomiting; denies chest pain and shortness of breath. Related Data Home Medications ?Medication ?Instructions ?Recorded ?Confirmed diclofenac sodium 75 mg 75 mg PO BID 10/31/21 05/20/25 tablet,delayed release cetirizine 10 mg capsule (Zyrtec) 10 mg PO DAILY PRN 04/09/22 05/20/25 hydroxychloroquine 200 mg tablet 200 mg PO DAILY 01/13/23 05/20/25 albuterol sulfate 90 mcg/actuation 2 puff inhalation Q6H PRN 04/21/24 05/20/25 aerosol inhaler shortness of breath or wheezing #8.5 grams magnesium 250 mg tablet 250 mg PO DAILY 04/21/24 05/20/25 semaglutide (weight loss) 1.7 1.7 mg (0.75 mL) subcut QWEEK #12 07/18/24 05/20/25 mg/0.75 mL subcutaneous pen SYRGS injector ezetimibe 10 mg tablet (Zetia) 10 mg PO DAILY #90 tabs 08/21/24 05/20/25 cholecalciferol (vitamin D3) 50 2,000 unit PO BID #180 caps 09/03/24 05/20/25 mcg (2,000 unit) capsule losartan 100 mg tablet 100 mg PO DAILY #90 tabs 09/18/24 05/20/25 omeprazole 20 mg capsule,delayed 20 mg PO BID #180 caps 09/18/24 05/20/25 release topiramate 100 mg tablet 100 mg PO DAILY #90 tabs 09/18/24 05/20/25 bupropion HCl 150 mg tablet,12 hr 150 mg PO BID #180 tabs 10/20/24 05/20/25 sustained-release fluticasone furoate 200 1 inh inhalation DAILY #3 ea 10/20/24 05/20/25 mcg-vilanterol 25 mcg/dose inhalation powder (Breo Ellipta) ondansetron HCl 8 mg tablet 8 mg PO TID PRN nausea and 10/20/24 05/20/25 vomiting #60 tabs estradiol 1 mg tablet (Estrace) 1 mg PO DAILY #90 tabs 12/22/24 05/20/25 montelukast 10 mg tablet 10 mg PO QHS #90 tabs 02/28/25 05/20/25 ketorolac 10 mg tablet 10 mg PO Q8H PRN 5 days #15 tabs 05/20/25 ondansetron 4 mg disintegrating 4 mg PO Q8H PRN nausea and 05/20/25 tablet vomiting #30 tabs Previous Rx's ?Medication ?Instructions ?Recorded albuterol sulfate 90 mcg/actuation 2 puff inhalation Q6H PRN 04/21/24 aerosol inhaler shortness of breath or wheezing #8.5 grams semaglutide (weight loss) 1.7 1.7 mg (0.75 mL) subcut QWEEK #12 07/18/24 mg/0.75 mL subcutaneous pen SYRGS injector ezetimibe 10 mg tablet (Zetia) 10 mg PO DAILY #90 tabs 08/21/24 cholecalciferol (vitamin D3) 50 2,000 unit PO BID #180 caps 09/03/24 mcg (2,000 unit) capsule losartan 100 mg tablet 100 mg PO DAILY #90 tabs 09/18/24 omeprazole 20 mg capsule,delayed 20 mg PO BID #180 caps 09/18/24 release topiramate 100 mg tablet 100 mg PO DAILY #90 tabs 09/18/24 bupropion HCl 150 mg tablet,12 hr 150 mg PO BID #180 tabs 10/20/24 sustained-release fluticasone furoate 200 1 inh inhalation DAILY #3 ea 10/20/24 mcg-vilanterol 25 mcg/dose inhalation powder (Breo Ellipta) ondansetron HCl 8 mg tablet 8 mg PO TID PRN nausea and 10/20/24 vomiting #60 tabs estradiol 1 mg tablet (Estrace) 1 mg PO DAILY #90 tabs 12/22/24 montelukast 10 mg tablet 10 mg PO QHS #90 tabs 02/28/25 ketorolac 10 mg tablet 10 mg PO Q8H PRN 5 days #15 tabs 05/20/25 ondansetron 4 mg disintegrating 4 mg PO Q8H PRN nausea and 05/20/25 tablet vomiting #30 tabs Allergies Allergy/AdvReac Type Severity Reaction Status Date / Time latex Allergy Unknown Anaphylaxsi Verified 05/20/25 08:44 s erythromycin base AdvReac Unknown [place]/Vomi Verified 05/20/25 08:44 ting [id number] Reductase AdvReac Unknown Myalgias Verified 05/20/25 08:44 Inhibitor (Kvpauky-Gzp-Zch Reductase Inhibitor) General Stated Complaint: FlankPain YAKOV: 3 Review of Systems All systems reviewed & are unremarkable except as noted in HPI and below Constitutional Constitutional: Denies chills, Denies fever(s) and Denies weakness Cardiovascular Cardiovascular: Denies chest pain and Denies dyspnea Respiratory Respiratory: Denies cough and Denies dyspnea Gastrointestinal Gastrointestinal: Denies abdominal pain, Reports nausea and Reports vomiting Musculoskeletal Musculoskeletal: Reports back pain Neurologic Neurologic: Denies weakness Exam Const General: no acute distress Orientation: alert HENAK Head: normal to inspection Ears: external ears normal General nose exam: external nose normal Mouth: moist mucous membranes Eyes General: appearance normal, both eyes and all related structures Neck Neck: normal visual inspection Resp Effort & Inspection: normal respiratory effort and able to speak in complete sentences Cardio Rate: regular rate GI Palpation: soft and nontender Back/Spine/Pelvis Back: no CVA tenderness Thoracic/Lumbar Spine: No lumbar spinal tenderness Skin General skin exam: no rashes or lesions noted Neuro General: patient alert and patient oriented x3 Extrem General: normal to inspection Psych Mental Status: mental status grossly normal Course Vital Signs Vital signs: Vital Signs Temperature 36.4 C 05/20/25 08:43 Pulse 75 05/20/25 08:43 Respiratory Rate 16 05/20/25 08:43 Blood Pressure 165/108 H 05/20/25 08:43 Pulse Oximetry 95 05/20/25 08:43 Temperature 36.4 C 05/20/25 08:43 Temperature Source Oral 05/20/25 08:43 Pulse 75 05/20/25 08:43 Respiratory Rate 16 05/20/25 08:43 Blood Pressure 165/108 H 05/20/25 08:43 Blood Pressure Position Sitting 05/20/25 08:43 Pulse Oximetry 95 05/20/25 08:43 Oxygen Delivery Method Room Air 05/20/25 08:43 Oxygen Flow Rate 0 05/20/25 08:43 Pain Level 8 05/20/25 08:43 Medical Decision Making 54-year-old female who states she has had kidney stones in the past comes in with right flank pain she states feels similar to prior kidney stones that she is passed. She says this started suddenly yesterday. Denies any trauma, no fevers but has had some chills. She denies any IV drug use. No difficulty urinating or changes in bowel habits. She localizes the pain to the right lower lumbar back region. She has no visible or palpable deformities. No abdominal tenderness. Suspect she has another kidney stone that she is passing, will check a CBC CMP and lipase and CT renal colic. Labs unremarkable, CT shows 2 mm ureter stone with mild right hydronephrosis. She is feeling improved. I will refer her to see urology and return precautions given. No findings on exam or history to suggest infected stone Differential Diagnosis Differential Diagnosis: Renal colic, musculoskeletal back pain PFSH All Active Problems (Updated 05/20/25 @ 11:23 by Baljeet Michele MD) Calculus of right ureter (Acute) Vasomotor symptoms due to menopause (Acute) Ascending aorta dilation (Chronic) 3.48cm on 2022 echo Iron deficiency (Chronic) Obesity, Class III, BMI 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 obesity) (Chronic) Inflammatory arthritis (Chronic) [place] [facility] [place]. 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 Major depressive disorder, recurrent (Chronic) Asthma (Chronic) MGUS (monoclonal gammopathy of unknown significance) (Chronic) [place] [facility] [place] Right carpal tunnel syndrome (Chronic) Allergic rhinitis (Chronic) Migraine headache (Chronic) GERD (gastroesophageal reflux disease) (Chronic) Generalized anxiety disorder (Chronic) Obstructive sleep apnea (Chronic) CPAP QHS Hyperlipidemia (Chronic) Essential hypertension (Chronic) Medical History (Updated 05/20/25 @ 11:23 by Baljeet Michele MD) Recurrent sinus infections Iron deficiency anemia Type 2 diabetes mellitus Per pt. no longer has Renal calculus Surgical History (Updated 08/18/24 @ 13:15 by Rossy Garnica) History of esophagogastroduodenoscopy (~07/2024) S/P partial hysterectomy (~2011) Ovaries remain H/O section (07/19/00) Hx of adenoidectomy (~1975) S/P cholecystectomy (~1993) Family History (Updated 04/21/24 @ 13:25 by Cammie Gonzalez NP) Mother Depression Diabetes Heart disease Hyperlipidemia Stroke Skin cancer Hypertension Crohn's disease Father , 77 Depression Hyperlipidemia Alzheimer's dementia Hypertension Myasthenia gravis CKD (chronic kidney disease) Atrial fibrillation COVID Brother Hyperlipidemia Asthma Son Depression Hyperlipidemia Maternal Grandfather , 70's Alcohol abuse Hypertension Skin cancer Brain aneurysm Hyperlipidemia Maternal Grandmother , 70's Heart disease Hypertension Breast cancer Diabetes Hyperlipidemia Paternal Grandfather , 70's Dementia Heart disease Myocardial infarction Hypertension Hyperlipidemia Paternal Grandmother , 70's Alcohol abuse Asthma Depression Hyperlipidemia AAA (abdominal aortic aneurysm) Hypertension Social History Smoking/Tobacco Use Status: Never Second Hand Exposure: Yes Smoking risk assessment performed?: Yes Alcohol Intake: current Alcohol Intake frequency: a few times a month Alcohol type: beer, wine and hard liquor Drug use: Never Substance use type: does not use Caregiver/Support person: No Household members: friend(s) Housing: house Communication Needs: None Do you need help understanding health information?: Never Pets and animals: Yes Pets and animals: cat(s) and dog(s) Sexually active: No Do you think of yourself as: straight/heterosexual Current gender identity: female What is your relationship status?: How often do you talk on the phone with friends or family?: three or more times per week How often do you get together with friends or relatives?: twice per week How often do you attend zoroastrianism or judaism services?: decline to answer Do you belong to any clubs or organized social groups?: yes Panel score (0-1 are the most socially isolated patients): 2 What type of physical activity do you participate in: walking Duration: < 15 minutes/day Frequency: daily Elo/Rastafarian: None Special elo needs: No Seatbelt use: always Helmet use: No Drive intox or ride w/intox electric lift truck driver: No Do you feel safe at home: Yes Do you feel safe in your relationship?: Yes Victim of physical abuse: No Victim of emotional abuse: No Victim of sexual abuse: No Would you like helpful sources: No Female Reproductive History Menstrual Menopause type: surgical (2011) History History 1 Para 1 Hx # Term Pregnancies Multiple births Hx # Pregnancies Ectopic pregnancies AB induced Hx Number of Living Children 1 AB spontaneous
[2025-05-20] MEDS: Normal Saline 1,000 ML 1000 ML IV (09:17)
[2025-05-20] MEDS: Ondansetron 4 MG/2 ML VIAL IVP ×2 (09:17→11:06)
[2025-05-20] MEDS: Ketorolac 15 MG/ML VIAL IVP ×2 (09:17→11:06)
--- NOTE | 2025-05-20 10:08 | DI.VRAD_ITS ---
PROCEDURE INFORMATION: Exam: CT Abdomen And Pelvis Without Contrast Exam date and time: 05/20/2025 9:23 AM Age: 54 years old Clinical indication: Other: Right flank pain TECHNIQUE: Imaging protocol: Computed tomography of the abdomen and pelvis without contrast. COMPARISON: CT CHEST/ABD/PEL W 08/28/2022 11:11 AM FINDINGS: Liver: Normal. No mass. Gallbladder and biliary ducts: Gallbladder is surgically removed. Pancreas: Normal. No ductal dilation. Spleen: Normal. No splenomegaly. Adrenal glands: Normal. No mass. Kidneys and ureters: 2 mm calcification in the right proximal ureter. Mild right hydronephrosis Stomach and bowel: Unremarkable. No obstruction. No mucosal thickening. Appendix: No evidence of appendicitis. Intraperitoneal space: Unremarkable. No free air. No significant fluid collection. Vasculature: Unremarkable. No abdominal aortic aneurysm. Lymph nodes: Unremarkable. No enlarged lymph nodes. Urinary bladder: Unremarkable as visualized. Reproductive: Unremarkable as visualized. Bones/joints: Unremarkable. No acute fracture. Soft tissues: Unremarkable. IMPRESSION: 1. 2 mm calcification in the right proximal ureter. Mild right hydronephrosis. No additional calculi appreciated 2. Gallbladder and uterus surgically removed. Dictated and Authenticated by: Ladi Sen MD. Orderin Leny Delong MD
[2025-05-20 10:17] LABS: Abs Immature Grans 0.03 10^3/uL (0.0-0.06); HCT 43.7 % (36.0-46.0); HGB 14.1 g/dL (11.2-15.7); Immature Grans % 0.4 %; MCH 29.6 pg (27.0-33.0); MCHC 32.3 % (32.0-36.0); MCV 92 fL (80-95); MPV 9.4 fL (8.0-11.0); Platelet Count 211 10^3/uL (130-400); RBC 4.77 10^6/uL (3.93-5.22); RDW 12.3 % (11.7-14.6); RDW-SD 41.4 fL; WBC 7.02 10^3/uL (4.4-10.8)
[2025-05-20 10:33] LABS: ALT 25 U/L (14-59); AST 19 U/L (15-37); Albumin 3.4 g/dL (3.4-5.0); Alkaline Phosphatase 75 U/L (46-116); Anion Gap 9.5 mmol/L (3-11); BUN 18 mg/dL (7-18); Bilirubin, Total 0.2 mg/dL (0.2-1.0); CO2 26.5 mmol/L (21.0-32.0); Calcium 8.7 mg/dL (8.5-10.1); Chloride 106 mmol/L (98-107); Estimated GFR 66.95 (mL/min/1.73m2); Glucose 93 mg/dL (74-106); Lipase 25 U/L (<78); Magnesium 2.1 mg/dL (1.8-2.4); Potassium 4.0 mmol/L (3.5-5.1); Sodium 142 mmol/L (136-145); Total Protein 6.7 g/dL (6.4-8.2)
[2025-05-20 10:59] LABS: Glucose Negative (Negative)
[2025-05-20 11:07] LABS: C & S Indicated? No; WBC 0-2 HPF (0-5)
[2025-05-20 11:24] VITALS: BP 121/57; PULSE 74; RESP 16; O2SAT 95
== END 2025-05-20 11:43 | disposition home or self-care (01) ==
PROVIDERS: Emergency Provider Emergency Medicine; PCP Nurse Practitioner Family
DX: N13.2 Hydronephrosis with renal and ureteral calculous obstruction (principal); E11.9 Type 2 diabetes mellitus without complications; I10 Essential (primary) hypertension; E78.5 Hyperlipidemia, unspecified; Z79.85 Long-term (current) use of injectable non-insulin antidiabetic drugs
CPT/HCPCS: 36415; 80053; 83690; 96361; 96374; 96375; 96376; 99284; 74176; 81003; 81015; 83735; 85025; 99283; J1885; J2405

== ENCOUNTER 2025-07-12 04:20 | Outpatient (CLI) | payer BC, SELFPAY ==
--- NOTE | 2025-07-12 07:15 | DI.MAMMO_ITS ---
Exam(s) MAMMO SCREENING EXAM: MAMMO SCREENING CLINICAL HISTORY: screening,z12.39 TECHNIQUE: Bilateral full field digital CC and MLO mammographic images were obtained with 3D tomosynthesis and utilizing computer aided detection (CAD). COMPARISON: Comparison is made with prior examinations. FINDINGS: Masses/Architectural Distortion: No suspicious masses or areas of architectural distortion are present. There are still stable biopsy clips in the left breast. Stable breast nodules are seen. Microcalcifications: No suspicious pleomorphic-type are seen. Skin Thickening/Nipple Retraction: None. IMPRESSION: 1. No significant interval change with no specific features of malignancy noted. 2. Unless there is more urgent need, screening mammography is recommended, as per [place] [employer] guidelines. BI-RADS Category 2 - Benign Findings Breast Density - Category B - There are scattered areas of fibroglandular density. Breast density Category C or D implies that the patient has dense breast tissue. Dense breast tissue can make it harder to find cancer on a mammogram. Dense breast tissue is also associated with an increased risk of breast cancer. This information about the result of the mammogram report was provided to the patient to raise their awareness. Use this report when you speak with the patient about their risks for breast cancer, which includes their family history. At that time, you may recommend additional screening tests (Ultrasound or MRI) as these tests may add significant information. A negative radiographic report should not delay biopsy if a dominant or clinically suspicious mass is present. Up to ten percent of cancers are not identified on mammography. A negative report may reinforce clinical impression. Adenosis and dense breasts may obscure an underlying neoplasm. False positive reports average 6 to 10%. Patient will receive a letter notifying them of these results.
== END 2025-07-12 04:40 ==
LOC: DI 04:20
PROVIDERS: PCP Nurse Practitioner Family; Visit Provider Nurse Practitioner Family
DX: Z12.31 Encounter for screening mammogram for malignant neoplasm of breast (principal)
CPT/HCPCS: 77063; 77067

== ENCOUNTER 2025-07-25 04:01 | Outpatient (CLI) | payer BC, SELFPAY ==
[2025-07-25 07:42] LABS: Abs Immature Grans 0.04 10^3/uL (0.0-0.06); HCT 43.4 % (36.0-46.0); HGB 13.8 g/dL (11.2-15.7); Immature Grans % 0.8 %; MCH 29.2 pg (27.0-33.0); MCHC 31.8 % (32.0-36.0); MCV 92 fL (80-95); MPV 9.2 fL (8.0-11.0); Platelet Count 245 10^3/uL (130-400); RBC 4.73 10^6/uL (3.93-5.22); RDW 12.8 % (11.7-14.6); RDW-SD 43.3 fL; WBC 5.30 10^3/uL (4.4-10.8)
[2025-07-25 08:33] LABS: ALT 25 U/L (14-59); AST 14 U/L (15-37); Albumin 3.8 g/dL (3.4-5.0); Alkaline Phosphatase 70 U/L (46-116); Anion Gap 11.5 mmol/L (3-11); BUN 14 mg/dL (7-18); Bilirubin, Total 0.3 mg/dL (0.2-1.0); CO2 22.5 mmol/L (21.0-32.0); Calcium 8.8 mg/dL (8.5-10.1); Chloride 109 mmol/L (98-107); Estimated GFR 87.50 (mL/min/1.73m2); Ferritin 256 ng/mL (8-252); Glucose 85 mg/dL (74-106); Iron 77 ug/dL (50-170); Potassium 3.6 mmol/L (3.5-5.1); Sodium 143 mmol/L (136-145); Total Iron Binding Capacity 340 ug/dL (250-450); Total Protein 7.3 g/dL (6.4-8.2); Transferrin Sat 23 % (15-50)
== END 2025-07-25 04:02 | disposition home or self-care (01) ==
PROVIDERS: PCP Nurse Practitioner Family; Visit Provider Internal Medicine Hematology & Oncology
DX: D50.9 Iron deficiency anemia, unspecified (principal)
CPT/HCPCS: 36415; 80053; 82728; 83540; 83550; 85025

== ENCOUNTER 2025-08-16 03:22 | Outpatient (CLI) | payer BC, SELFPAY ==
[2025-08-16 08:45] LABS: Abs Immature Grans 0.04 10^3/uL (0.0-0.06); HCT 43.2 % (36.0-46.0); HGB 13.7 g/dL (11.2-15.7); Immature Grans % 0.8 %; MCH 29.3 pg (27.0-33.0); MCHC 31.7 % (32.0-36.0); MCV 93 fL (80-95); MPV 9.3 fL (8.0-11.0); Platelet Count 228 10^3/uL (130-400); RBC 4.67 10^6/uL (3.93-5.22); RDW 12.6 % (11.7-14.6); RDW-SD 42.7 fL; WBC 5.21 10^3/uL (4.4-10.8)
[2025-08-16 09:37] LABS: ALT 28 U/L (14-59); AST 14 U/L (15-37); Albumin 3.6 g/dL (3.4-5.0); Alkaline Phosphatase 74 U/L (46-116); Anion Gap 9.3 mmol/L (3-11); BUN 14 mg/dL (7-18); Bilirubin, Total 0.3 mg/dL (0.2-1.0); CO2 25.7 mmol/L (21.0-32.0); Calcium 9.1 mg/dL (8.5-10.1); Chloride 107 mmol/L (98-107); Estimated GFR 87.50 (mL/min/1.73m2); Glucose 79 mg/dL (74-106); Potassium 3.7 mmol/L (3.5-5.1); Sodium 142 mmol/L (136-145); Total Protein 7.0 g/dL (6.4-8.2)
== END 2025-08-16 03:23 | disposition home or self-care (01) ==
PROVIDERS: PCP Nurse Practitioner Family; Visit Provider Internal Medicine Rheumatology
DX: M06.00 Rheumatoid arthritis without rheumatoid factor, unspecified site (principal)
CPT/HCPCS: 36415; 80053; 85025